=== PATIENT | male | born 1955 | race Caucasian/White ===

== ENCOUNTER 2019-05-17 13:32 | Outpatient (CLI) | payer BC, SELFPAY ==
--- NOTE | ~2019-05-17 | XR_ITS ---
EXAMINATION: XR chest 2V 05/17/2019 13:46 INDICATION: Cough PROCEDURE: 2 view chest COMPARISON: Comparison to multiple prior studies sequentially, with oldest reviewed study dated 08/15. FINDINGS: The lungs are clear. The cardiomediastinal silhouette is within normal limits. There are no pleural effusions. There is no pneumothorax suspected. IMPRESSION: 1: NO ACUTE CARDIOPULMONARY DISEASE. Reviewed, dictated and finalized at location A. ING WORKER
== END 2019-05-17 13:33 | disposition home or self-care (01) ==
PROVIDERS: PCP Family Medicine; Visit Provider Nurse Practitioner Family
DX: R05 Cough (principal)
CPT/HCPCS: 71046

== ENCOUNTER → 2019-07-07 08:07 | Outpatient (CLI) | payer BC, SELFPAY ==
--- NOTE | ~2019-07-07 | US_ITS ---
US abdomen complete DATE: 07/07/2019 09:00 INDICATION: Microscopic hematuria. Left flank pain. Past history of ruptured spleen secondary to trau ma. TECHNIQUE: Real-time and color flow imaging of the abdomen, Doppler analysis COMPARISON: None FINDINGS: Right hepatic 1.9 x 2.1 cm septated cyst. Left hepatic 1.8 x 1.4 cm cyst. Normal hepatic portal venous flow direction. No evidence of gallstones, gallbladder wall thickening or abnormal pericholecystic fluid collection. Negative sonographic Thorne's sign. The common bile duct measures 3.3 mm, normal. Right kidney measures 11 cm length, left kidney 10.5 cm length. No renal mass lesion or hydronephrosi s is evident. Probable 2.5 x 2.5 cm splenic tissue in the left upper quadrant. Normal caliber of the abdominal aorta. The inferior vena cava is unremarkable. IMPRESSION: Hepatic cysts Reviewed, dictated and finalized at Location A. Reviewed, dictated and finalized at location B. IMPRESSION: Hepatic cysts
== END ==
PROVIDERS: PCP Family Medicine; Visit Provider Family Medicine
DX: R31.29 Other microscopic hematuria (principal); K76.89 Other specified diseases of liver
CPT/HCPCS: 76700

== ENCOUNTER 2019-08-11 10:20 | Outpatient (CLI) | payer BC, SELFPAY ==
--- NOTE | ~2019-08-11 | CT_ITS ---
EXAMINATION: CT chest wo con DATE: 08/11/2019 10:54 INDICATION: Chronic cough TECHNIQUE: Computed tomography (CT) of the chest was performed without intravenous contrast. The dose -length product (DLP) was 282.97 mGy-cm. Automated exposure control and iterative reconstruction tech [employer] were employed. COMPARISON: None FINDINGS: Calcified pulmonary nodules are consistent with old granulomatous disease. The lungs are fr ee of acute opacities. There is no pleural effusion or pneumothorax. No pathologically enlarged thora cic lymph nodes are identified. There is an increase in number of nonpathologically enlarged lymph no katlyn in the bilateral axilla. The heart size is normal. There is calcified coronary artery atheroscler osis. Cysts of the liver measure up to 2.1 cm. The spleen is small which may reflect a splenule remna nt after prior splenectomy. There is mild thoracic spondylosis. IMPRESSION: 1. No CT correlate for the patient's symptoms. Reviewed, dictated and finalized at location A.
== END 2019-08-11 10:21 | disposition home or self-care (01) ==
LOC: ANHIMG 10:29
PROVIDERS: PCP Family Medicine; Visit Provider Nurse Practitioner Family
DX: R05 Cough (principal); R07.81 Pleurodynia
CPT/HCPCS: 71250

== ENCOUNTER 2019-08-30 10:28 | Outpatient (CLI) | payer BC, SELFPAY | END 2019-08-30 10:29 | disposition home or self-care (01) | PROVIDERS: PCP Family Medicine; Visit Provider Nurse Practitioner Family | DX: J30.9 Allergic rhinitis, unspecified (principal) | CPT/HCPCS: 36415; 82785; 86003 ==

== ENCOUNTER → 2020-01-27 08:51 | Outpatient (CLI) | payer BC, SELFPAY ==
--- NOTE | ~2020-01-27 | XR_ITS ---
XR cervical spine 4-5V DATE: 01/27/2020 09:07 INDICATION: Neck pain TECHNIQUE: Standing AP, open-mouth, lateral and swimmer views COMPARISON: 01/18/2016 MRI cervical spine 07/16/2015 cervical spine FINDINGS: There is normal alignment of the cervical spine. C1 and C2 are normally aligned and the odo ntoid process is intact. No fracture or dislocation or locked facet or prevertebral soft tissue swelling. There is severe degenerative disc disease at C5-6, C6-7 and C7-T1, with mild retrolisthesis at C5-6. There is prominent uncovertebral joint spurring at C5-6 and C6-7. IMPRESSION: Severe degenerative changes Reviewed, dictated and finalized at location A. IMPRESSION: Severe degenerative changes
== END ==
PROVIDERS: PCP Family Medicine; Visit Provider Family Medicine
DX: M47.812 Spondylosis without myelopathy or radiculopathy, cervical region (principal)
CPT/HCPCS: 72050

== ENCOUNTER 2020-05-02 10:13 | Outpatient (NON) | payer BC, SELFPAY ==
[2020-05-02 22:14] LABS: SARS-CoV-2 RNA PCR Positive
== END 2020-05-02 10:14 ==
PROVIDERS: PCP Internal Medicine; Visit Provider Nurse Practitioner
DX: U07.1 COVID-19 (principal)
CPT/HCPCS: C9803; U0003; U0005

== ENCOUNTER 2020-11-21 07:53 | Outpatient (CLI) | payer BC, SELFPAY ==
[2020-11-21 09:23] LABS: Vitamin D 25 Hydroxy 45.8 ng/mL
[2020-11-21 10:00] LABS: Alanine Aminotransferase 27 U/L (4-50); Albumin Level 4.2 g/dL (3.5-5.1); Alkaline Phosphatase 75 U/L (38-126); Anion Gap 8 mmol/L (8-16); Aspartate Amino Transferase 27 U/L (17-59); Bilirubin,Total 0.9 mg/dL (0.2-1.3); Blood Urea Nitrogen 14 mg/dL (9-20); Calcium 9.3 mg/dL (8.4-10.2); Carbon Dioxide 25 mmol/L (22-30); Chloride 106 mmol/L (98-107); Cholesterol 192 mg/dL (0-200); Estimated Glomerular Filt Rate > 60; Glucose 103 mg/dL (65-110); HDL Direct 58 mg/dL; Sodium 139 mmol/L (137-145); Triglycerides 135 mg/dL (<150)
[2020-11-21 10:11] LABS: LDL Cholesterol Direct 96 mg/dL
[2020-11-21 10:28] LABS: Prostate Specific Antigen 1.4 ng/mL (< OR = 4.0)
== END 2020-11-21 07:54 | disposition home or self-care (01) ==
LOC: ANHLAB 08:03
PROVIDERS: PCP Internal Medicine; Visit Provider Internal Medicine
DX: Z12.5 Encounter for screening for malignant neoplasm of prostate (principal); E78.5 Hyperlipidemia, unspecified; E55.9 Vitamin D deficiency, unspecified; Z51.81 Encounter for therapeutic drug level monitoring; Z79.899 Other long term (current) drug therapy
CPT/HCPCS: 36415; 80053; 80061; 82306; 84153; G0103

== ENCOUNTER 2020-12-18 07:43 | Outpatient (CLI) | payer BC, SELFPAY ==
--- NOTE | ~2020-12-18 | US_ITS ---
EXAMINATION: US carotid duplex BI EXAM DATE: 12/18/2020 08:26 INDICATION: Z86.79 - Personal history of other diseases of the circulatory system. TECHNIQUE: Grayscale, color and pulsed Doppler images of the cervical carotid arteries were obtained . The degree of vessel stenosis is placed in one of the following categories: normal, <50% stenosis, 50-69% stenosis, >=70% stenosis but less than near-occlusion, near-occlusion, or occlusion. Note that percent stenosis relative to normal distal artery lumen diameter is indirectly measured from velocit y measurements as described by Sebastián, et al. Radiology 2003; [id number]. Comparison is made to prior examination from 12/29/2016. FINDINGS: RIGHT SIDE: Right common carotid artery peak systolic velocity (PSV in cm/s): 89 Right bulb/internal carotid artery peak systolic velocity (PSV in cm/s): 58 Right internal carotid artery end diastolic velocity (EDV in cm/s): 22 Right ICA/CCA peak systolic ratio: 0.7 Right external carotid artery peak systolic velocity (PSV in cm/s): 75 Right vertebral artery antegrade flow: Occluded There is no focal plaque identified. LEFT SIDE: Left common carotid artery peak systolic velocity (PSV in cm/s): 118 Left bulb/internal carotid artery peak systolic velocity (PSV in cm/s): 58 Left internal carotid artery end diastolic velocity (EDV in cm/s): 23 Left ICA/CCA peak systolic ratio: 0.5 Left external carotid artery peak systolic velocity (PSV in cm/s): 65 Left vertebral artery antegrade flow: yes There is no focal plaque identified. IMPRESSION: 1. Normal right internal carotid artery. 2. Normal left internal carotid artery. Reviewed, dictated and finalized at location D.
== END 2020-12-18 07:44 | disposition home or self-care (01) ==
PROVIDERS: PCP Internal Medicine; Visit Provider Internal Medicine
DX: Z86.79 Personal history of other diseases of the circulatory system (principal)
CPT/HCPCS: 93880

== ENCOUNTER 2021-05-31 08:02 | Outpatient (CLI) | payer OTHER, SELFPAY ==
[2021-05-31 08:39] LABS: Alanine Aminotransferase 23 U/L (4-50); Albumin Level 4.1 g/dL (3.5-5.1); Alkaline Phosphatase 70 U/L (38-126); Anion Gap 2 mmol/L (8-16); Aspartate Amino Transferase 26 U/L (17-59); Bilirubin,Total 0.8 mg/dL (0.2-1.3); Blood Urea Nitrogen 15 mg/dL (9-20); Carbon Dioxide 28 mmol/L (22-30); Chloride 108 mmol/L (98-107); Cholesterol 250 mg/dL (0-200); Estimated Glomerular Filt Rate > 60; Glucose 114 mg/dL (65-110); HDL Direct 43 mg/dL; Potassium 4.1 mmol/L (3.4-5.0); Sodium 138 mmol/L (137-145); Triglycerides 141 mg/dL (<150)
[2021-05-31 08:50] LABS: LDL Cholesterol Direct 153 mg/dL
[2021-05-31 09:35] LABS: Vitamin D 25 Hydroxy 33.6 ng/mL
== END 2021-05-31 08:03 | disposition home or self-care (01) ==
PROVIDERS: PCP Internal Medicine; Visit Provider Internal Medicine
DX: R53.83 Other fatigue (principal); E78.5 Hyperlipidemia, unspecified; E55.9 Vitamin D deficiency, unspecified; Z79.899 Other long term (current) drug therapy
CPT/HCPCS: 36415; 80053; 80061; 82306

== ENCOUNTER 2021-06-04 09:26 | Outpatient (CLI) | payer OTHER, SELFPAY ==
--- NOTE | ~2021-06-04 | XR_ITS ---
EXAMINATION:XR_CERV2-3V_CR DATE: 06/04/2021 09:49 INDICATION: Neck pain TECHNIQUE: AP, lateral, and odontoid views of the cervical spine are provided. COMPARISON: 01/27/2020 FINDINGS: Alignment is normal. The odontoid is intact. No fracture is identified. There is unchanged severe loss of intervertebral disc space height at C5-6, C6-7, and C7-T1. Severe uncovertebral joint osteoarthritis is also noted at these levels. There is moderate to severe facet osteoarthritis throug hout the cervical spine. Degenerative osteophytes project from the anterior endplates of multiple darling tebral bodies. Prevertebral soft tissues are normal. IMPRESSION: 1. Severe cervical spondylosis without acute findings or significant interval change. Reviewed, dictated and finalized at location A. PER ON IMPRESSION: 1. Severe cervical spondylosis without acute findings or significant interval fiona rodríguez
[2021-06-04 11:34] LABS: Hemoglobin A1C 5.5 % (<5.7)
[2021-06-07 11:53] LABS: Testosterone Total 479 ng/dL (250-1100)
== END 2021-06-04 09:27 | disposition home or self-care (01) ==
LOC: ANHLAB 09:28
PROVIDERS: PCP Internal Medicine; Visit Provider Nurse Practitioner
DX: M54.2 Cervicalgia (principal); R53.83 Other fatigue; R73.9 Hyperglycemia, unspecified; M47.812 Spondylosis without myelopathy or radiculopathy, cervical region
CPT/HCPCS: 36415; 72040; 83036; 84403

== ENCOUNTER 2021-07-08 08:08 | Outpatient (CLI) | payer OTHER, SELFPAY | END 2021-07-08 08:09 | disposition home or self-care (01) | LOC: ANHAUDIO 08:09 | PROVIDERS: PCP Internal Medicine; Visit Provider Nurse Practitioner | DX: H93.19 Tinnitus, unspecified ear (principal); H90.3 Sensorineural hearing loss, bilateral | CPT/HCPCS: 92557; 92567 ==

== ENCOUNTER 2021-08-02 14:13 | Outpatient (CLI) | payer OTHER, SELFPAY ==
--- NOTE | ~2021-08-02 | XR_ITS ---
XR lumbar spine 2-3V DATE: 08/02/2021 14:34 INDICATION: Back pain, tailbone pain after a fall TECHNIQUE: AP, lateral, coned lateral lumbosacral views COMPARISON: None FINDINGS: There is prominent degenerative change at the apophyseal joints in the lower lumbar and lum bosacral area, with associated grade 1 anterolisthesis at L4-5. There is mild degenerative disc disease at L2-3 and L3-4. There is moderate degenerative disc disease at L4-5. There is severe degenerative disc disease at L5-S1. The lumbar pedicles are intact. The anterior cortical margin of L1 is not clearly demonstrated and there is patchy increased density overlying L1; fracture is not excluded. Consider further evaluation with CT or MR lumbar spine exami nation. No other fracture or bone destruction is detected. The sacroiliac joints are intact. IMPRESSION: Cannot exclude L1 subtle vertebral body fracture; consider CT or MR lumbar spine for more definitive evaluation. Grade 1 anterolisthesis at L4-5 due to degenerative change at the apophyseal joints Multilevel degenerative disc disease, most pronounced at L5-S1 Reviewed, dictated and finalized at location A. IMPRESSION: Cannot exclude L1 subtle vertebral body fracture; consider CT or MR lumbar spine for more definitive evaluation. Grade 1 anterolisthesis at L4-5 due to degenerative change at the apophyseal horacio ints Multilevel degenerative disc disease, most pronounced at L5-S1
--- NOTE | ~2021-08-02 | XR_ITS ---
EXAMINATION: XR hip RT min 2V DATE: 08/02/2021 14:35 INDICATION: Right hip pain. TECHNIQUE: 2 views of right hip were obtained. COMPARISON: None. FINDINGS: Bone alignment is normal. No fracture. Right hip joint space is normal. There is severe lum bar spondylosis. IMPRESSION: 1. Normal right hip. Reviewed, dictated and finalized at location A. IMPRESSION: 1. Normal right hip.
== END 2021-08-02 14:14 | disposition home or self-care (01) ==
PROVIDERS: PCP Internal Medicine; Visit Provider Internal Medicine
DX: M54.9 Dorsalgia, unspecified (principal); M25.551 Pain in right hip; M43.16 Spondylolisthesis, lumbar region; M51.37 Other intervertebral disc degeneration, lumbosacral region
CPT/HCPCS: 72100; 73502; 97014; 97110; 97161; G0283

== ENCOUNTER 2021-08-19 08:23 | Outpatient (CLI) | payer OTHER, SELFPAY ==
--- NOTE | ~2021-08-19 | CT_ITS ---
EXAMINATION: CT lumbar spine wo con DATE: 08/19/2021 08:45 INDICATION: Abnormal findings on diagnostic imaging. Low back pain. TECHNIQUE: Computed tomography (CT) of the lumbar spine was performed without intravenous contrast. A utomated exposure control and iterative reconstruction technique were employed. The dose-length produ ct was 759.13 mGy-cm. COMPARISON: Lumbar spine radiographs 08/02/2021 FINDINGS: There is 5 mm anterolisthesis of L4 on L5. There is a compression fracture of L4 with 2/5 l oss of height centrally. There is mildly decreased disc height at L4-L5 and severely decreased disc h eight at L5-S1. The following disc levels are specifically discussed: L1-L2: The disc does not extend beyond the endplate margin. There is mild bilateral facet joint osteo arthritis. There is no neural foraminal stenosis. There is no central canal stenosis. L2-L3: The disc is mildly bulging. There is mild bilateral facet joint osteoarthritis. There is mild bilateral neural foraminal stenosis. There is no central canal stenosis. L3-L4: The disc is bulging. There is moderate bilateral facet joint osteoarthritis. There is mild ga ateral neural foraminal stenosis. There is mild central canal stenosis. L4-L5: The disc is bulging. There is severe bilateral facet joint osteoarthritis. There is moderate b ilateral neural foraminal stenosis. There is moderate central canal stenosis. L5-S1: The disc is bulging. There is severe bilateral facet joint osteoarthritis. There is moderate b ilateral neural foraminal stenosis. There is mild central canal stenosis. IMPRESSION: 1. Subacute L4 compression fracture. 2. Severe lower lumbar spondylosis. Reviewed, dictated and finalized at location B.
== END 2021-08-19 08:24 | disposition home or self-care (01) ==
PROVIDERS: PCP Internal Medicine; Visit Provider Internal Medicine
DX: R93.7 Abnormal findings on diagnostic imaging of other parts of musculoskeletal system (principal); S32.040A Wedge compression fracture of fourth lumbar vertebra, initial encounter for closed fracture; M47.816 Spondylosis without myelopathy or radiculopathy, lumbar region
CPT/HCPCS: 72131

== ENCOUNTER 2021-09-11 09:00 | Outpatient (RCR) | payer OTHER, SELFPAY ==
--- NOTE | 2021-08-02 11:38 | PTOPEVAL ---
Thank you for referring Jimbo Howell to [facility].? The patient is scheduled to be seen for therapy?1 x/week for 4 weeks. Please review, sign, date and return this plan of care GIGI. I agree with and certify that the following plan of care is medically necessary. Referring Physician Date Attending Provider: Aidan Grigsby, Diagnosis neck pain Onset chronic Additional Evaluation Detail his recently injured his back from a fall 2 wks ago attempting to play basketball. He has not seen the MD for his back yet. Subjective Information He reports he feels like he Query Text:As Reported By Patient/ needs a massage to work on his Family neck muscle. He c/o N/T into UE when sleeping or when performing repeated hand task. 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 He reports limitations with turning his head with driving. Diagnostic Tests X-Rays For This Problem Yes: Severe cervical spondylosis Previous Treatments Previous Treatments For This Problem 1 visit 10 yrs ago Pain Assessment Posterior Neck Reported Pain Level 0 Pain Description Numbness,Radiating,Tightness, Tingling Pain Frequency Chronic Lowest Pain Intensity 0 Greatest Pain Intensity 6 Pain Aggravating Factors Exercise/Activity,Prolonged Position Cervical and Lumbar ROM Cervical ROM Cervical Flexion (0-60) 63 Degrees Cervical Extension (0-70) 55 Degrees Cervical Lateral Flexion Right (0-50) 18 Degrees Cervical Lateral Flexion Left (0-50) 18 Degrees Cervical Rotation Right (0-90) 32 Degrees Cervical Rotation Left (0-90) 40 Degrees Cervical ROM Comments pulling, tightness noted Upper Extremity Range of Motion General Upper Extremity Range of Motion Reason Not Measured WFL/Left,WFL/Right Cervical and Lumbar Muscle Testing Cervical Muscle Testing Cervical Flexion 5 Normal Cervical Extension 5 Normal Cervical Lateral Flexion Right 5 Normal Cervical Lateral Flexion Left 5 Normal Muscle Length Testing Muscle Length Testing Pectoralis Minor Muscle Length (R) Severe Tightness,(L) Severe Tightness Posture Sitting Position Shoulde
--- NOTE | 2021-08-26 11:58 | PTOPEVAL ---
Physical Therapy Progress Note Thank you for referring Jimbo Howell to [facility].?Jimbo has been seen for 5 therapy visits to address chronic neck pain. He is progressing slowly with improved pain and tissue restriction. See summary below for additional information. The patient is scheduled to be seen for therapy?1 x/week for 4 weeks. Please review, sign, date and return this plan of care GIGI. I agree with and certify that the following plan of care is medically necessary. Referring Physician Date Attending Provider: Aidan Grigsby DO Diagnosis neck pain Onset chronic Additional Evaluation Detail his recently injured his back from a fall 2 wks ago attempting to play basketball. He has not seen the MD for his back yet. Subjective Information He c/o pain with neck motion Query Text:As Reported By Patient/ or when working. He c/o Family numbness and tingling of UE when sleeping. He sleeps only 2-3 hrs before his symptoms start. He cont to have increased symptoms with repeated hand/UE task. He reports limitations with turning his head with driving. He is performing some exercises daily. 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 Pain Assessment post neck region Reported Pain Level 6 Pain Description Numbness,Radiating,Tightness, Tingling Pain Frequency Chronic Lowest Pain Intensity 0 Greatest Pain Intensity 6 Pain Aggravating Factors Exercise/Activity,Prolonged Cervical and Lumbar ROM Cervical ROM Cervical Flexion (0-60) 50 Degrees Cervical Extension (0-70) 50 Degrees Cervical Lateral Flexion Right (0-50) 18 Degrees Cervical Lateral Flexion Left (0-50) 18 Degrees Cervical Rotation Right (0-90) 60 Degrees Cervical Rotation Left (0-90) 54 Degrees Cervical ROM Comments pulling, tightness noted Posture Sitting Position Head/C-Spine Posture Forward Head Thoracic Spine Posture Increased Kyphosis Shoulder Posture (L) Rounded,(R) Rounded,(L) Forward,(R) Forward Scapula Posture (L) Protracted,(R) Protracted, (L) Winged,(R) Winged,(L) Tipped,(R) Tipped Palpation Assessment Palpation moderate to severe tenderness
--- NOTE | 2021-09-11 09:53 | PTOPEVAL ---
PHYSICAL THERAPY PROGRESS REPORT AND DISCHARGE SUMMARY. Thank you for referring Jimbo Howell to [facility].? The patient is to be discharged from therapy services at this time. Please review, sign, date and return this plan of care GIGI. I agree with and certify that the following plan of care is medically necessary. Referring Physician Date Attending Provider: Aidan Grigsby, Evaluation Information Diagnosis neck pain Onset chronic Subjective Information Pt states his neck pain has Query Text:As Reported By Patient/ improved and he can tolerate Family it as is for a while. He states he still has an ache and a knot in his R shoulder. He has no complaints about his L shoulder. He states his motion while driving has improved a little. He states overall he has improved, hes just not all the way better yet. He still has numbness and tingling in his R arm. 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 Pain Assessment Self Report Pain Assessment Posterior Neck Reported Pain Level 6 Pain Description Numbness,Radiating,Tightness,Tingling Greatest Pain Intensity 6 Cervical and Lumbar ROM Cervical ROM Cervical Flexion (0-60) 50 active Cervical Extension (0-70) 50 active Cervical Lateral Flexion Right (0-50) 16 active Cervical Lateral Flexion Left (0-50) 15 active Cervical Rotation Right (0-90) 57 active Cervical Rotation Left (0-90) 56 active Cervical ROM Comments Tightness noted on the R with all active cervical movements Posture Sitting Position Head/C-Spine Posture Forward Head Thoracic Spine Posture Increased Kyphosis Shoulder Posture (L) Rounded,(R) Rounded,(L) Forward,(R) Forward Scapula Posture (L) Protracted,(R) Protracted, (L) Winged,(R) Winged,(L) Tipped,(R) Tipped Palpation Assessment Palpation tightness noted in Daniel upper trap Safety Assessment Factors Affecting Safety No Concerns General Exercise Exercise Description - reviewed HEP and educted on Query Text:Record Sets, Reps, the importance of continuing Resistance, and Position upon discharge - reviewed hand placement for cervical stretches, educated olga
== END 2021-09-12 11:59 | disposition home or self-care (01) ==
LOC: ANHPT 09:00
PROVIDERS: PCP Internal Medicine; Visit Provider Internal Medicine
DX: M54.2 Cervicalgia (principal)
CPT/HCPCS: 97014; 97110; 97140; 97161; 97530; G0283

== ENCOUNTER 2021-12-09 08:14 | Outpatient (CLI) | payer OTHER, SELFPAY ==
[2021-12-09 10:00] LABS: Alanine Aminotransferase 24 U/L (6-50); Albumin Level 4.1 g/dL (3.5-5.1); Alkaline Phosphatase 65 U/L (38-126); Anion Gap 9 mmol/L (8-16); Aspartate Amino Transferase 32 U/L (17-59); Blood Urea Nitrogen 14 mg/dL (9-20); Carbon Dioxide 24 mmol/L (22-30); Chloride 103 mmol/L (98-107); Cholesterol 197 mg/dL (0-200); Estimated Glomerular Filt Rate > 60; Glucose 103 mg/dL (65-110); HDL Direct 45 mg/dL; Potassium 3.8 mmol/L (3.4-5.0); Sodium 136 mmol/L (137-145); Triglycerides 122 mg/dL (<150)
[2021-12-09 10:08] LABS: Hemoglobin A1C 5.5 % (<5.7)
[2021-12-09 10:11] LABS: LDL Cholesterol Direct 113 mg/dL
[2021-12-09 11:20] LABS: Prostate Specific Antigen 1.6 ng/mL (< OR = 4.0)
== END 2021-12-09 08:15 | disposition home or self-care (01) ==
PROVIDERS: PCP Internal Medicine; Visit Provider Nurse Practitioner
DX: R53.83 Other fatigue (principal); G47.00 Insomnia, unspecified; R73.9 Hyperglycemia, unspecified; Z12.5 Encounter for screening for malignant neoplasm of prostate; E78.5 Hyperlipidemia, unspecified
CPT/HCPCS: 36415; 80053; 80061; 83036; 84153; 84443; G0103

== ENCOUNTER 2021-12-10 11:05 | Outpatient (CLI) | payer OTHER, SELFPAY ==
--- NOTE | ~2021-12-10 | XR_ITS ---
EXAMINATION: XR chest 2V DATE: 12/10/2021 11:34 INDICATION: Other chest pain. TECHNIQUE: Frontal and lateral views of the chest were obtained. COMPARISON: Chest 2 views 05/17/2019 FINDINGS: Calcified left lung nodules are consistent with old granulomatous disease. No pleural effus ion or pneumothorax. The heart size is normal. IMPRESSION: 1. No acute cardiopulmonary disease. Reviewed, dictated and finalized at location A.
== END 2021-12-10 11:06 | disposition home or self-care (01) ==
PROVIDERS: PCP Internal Medicine; Visit Provider Internal Medicine
DX: R07.89 Other chest pain (principal)
CPT/HCPCS: 71046

== ENCOUNTER 2022-06-11 09:07 | Outpatient (CLI) | payer OTHER, SELFPAY ==
--- NOTE | ~2022-06-11 | XR_ITS ---
XR shoulder LT min 2V 06/11/2022 09:54 Indication: Restricted range of motion due to trauma. Procedure: 4 views left shoulder Comparison: No prior studies for comparison. Findings: There is heterotopic ossification surrounding the left clavicle and acromioclavicular joint . No acute fracture or traumatic malalignment. There is mild polyarticular osteoarthritis of the shou lder. No foreign bodies. 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 Reviewed, dictated and finalized at location B. 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
[2022-06-11 10:02] LABS: Alanine Aminotransferase 29 U/L (6-50); Albumin Level 4.3 g/dL (3.5-5.1); Alkaline Phosphatase 68 U/L (38-126); Anion Gap 7 mmol/L (8-16); Aspartate Amino Transferase 29 U/L (17-59); Bilirubin,Total 1.3 mg/dL (0.2-1.3); Blood Urea Nitrogen 13 mg/dL (9-20); Calcium 8.9 mg/dL (8.4-10.2); Carbon Dioxide 27 mmol/L (22-30); Chloride 106 mmol/L (98-107); Cholesterol 219 mg/dL (0-200); Estimated Glomerular Filt Rate > 60; Glucose 107 mg/dL (65-110); HDL Direct 43 mg/dL; Potassium 4.2 mmol/L (3.4-5.0); Sodium 140 mmol/L (137-145); Triglycerides 119 mg/dL (<150)
[2022-06-11 10:12] LABS: Hemoglobin A1C 5.7 % (<5.7)
[2022-06-11 10:13] LABS: LDL Cholesterol Direct 126 mg/dL
[2022-06-11 10:30] LABS: Prostate Specific Antigen 1.4 ng/mL (< OR = 4.0); Thyroid Stimulating Hormone 0.921 uIU/mL (0.465-4.680)
[2022-06-24 09:18] LABS: Testosterone Free 42.2 pg/mL (46.0-224.0)
== END 2022-06-11 09:08 | disposition home or self-care (01) ==
PROVIDERS: PCP Internal Medicine; Visit Provider Internal Medicine
DX: M19.012 Primary osteoarthritis, left shoulder (principal); R53.83 Other fatigue; E78.5 Hyperlipidemia, unspecified; N40.0 Benign prostatic hyperplasia without lower urinary tract symptoms; R73.9 Hyperglycemia, unspecified; Z12.5 Encounter for screening for malignant neoplasm of prostate
CPT/HCPCS: 36415; 73030; 80053; 80061; 83036; 84153; 84402; 84443; G0103

== ENCOUNTER 2022-10-14 10:24 | Outpatient (CLI) | payer OTHER, SELFPAY ==
--- NOTE | ~2022-10-14 | XR_ITS ---
Right wrist Technique: PA and lateral views were obtained. Clinical History: Pain Findings: No acute fracture or dislocation is seen. There is advanced degenerative change of the STT articulations. Remaining joint spaces appear intact. Soft tissues are unremarkable. Impression: Advanced osteoarthritis of the STT articulations. Reviewed, dictated and finalized at location . Impression: Advanced osteoarthritis of the STT articulations.
--- NOTE | ~2022-10-14 | XR_ITS ---
Right Hand Technique: PA and lateral views were obtained. Clinical History: Pain Findings: No acute fracture or dislocation is seen. There is advanced degenerative change at the STT articulations in the wrist. There are minimal scattered degenerative changes of the interphalangeal j oints in the fingers. Soft tissues are unremarkable. Impression: Advanced degenerative change of the STT articulations and the wrist. Minimal scattered degenerative changes of the interphalangeal joints in the fingers. Reviewed, dictated and finalized at location M. Impression: Advanced degenerative change of the STT articulations and the wrist. Minimal scattered degenerative changes of the interphalangeal joints in the fin gers.
== END 2022-10-14 10:25 | disposition home or self-care (01) ==
PROVIDERS: PCP Family Medicine; Visit Provider Family Medicine
DX: R53.83 Other fatigue (principal); G56.20 Lesion of ulnar nerve, unspecified upper limb; G47.33 Obstructive sleep apnea (adult) (pediatric); G47.00 Insomnia, unspecified; F41.9 Anxiety disorder, unspecified; M25.539 Pain in unspecified wrist; E55.9 Vitamin D deficiency, unspecified; E78.5 Hyperlipidemia, unspecified; R73.9 Hyperglycemia, unspecified; M19.031 Primary osteoarthritis, right wrist
CPT/HCPCS: 73100; 73120

== ENCOUNTER → 2022-11-19 08:06 | Outpatient (CLI) | payer OTHER, SELFPAY ==
--- NOTE | ~2022-11-19 | XR_ITS ---
Right elbow Technique: AP and lateral views were obtained. Clinical History: Pain Findings: No acute fracture or dislocation is seen. Osseous alignment is anatomic. Joint spaces are p reserved. There is no displacement of the fat pads, and no evidence of joint effusion. There are enth esopathic changes or chronic heterotopic ossification at the medial and lateral epicondyles. There is additional enthesopathic change at the triceps tendon insertion. Impression: Enthesopathic changes and/or heterotopic ossification at the medial and lateral epicondyles. Addition al enthesopathic change at the triceps tendon insertion. Reviewed, dictated and finalized at location M. Impression: Enthesopathic changes and/or heterotopic ossification at the medial and lateral epicondyles. Additional enthesopathic change at the triceps tendon insertion.
== END ==
PROVIDERS: PCP Family Medicine; Visit Provider Orthopaedic Surgery
DX: M25.521 Pain in right elbow (principal); M77.8 Other enthesopathies, not elsewhere classified; M77.01 Medial epicondylitis, right elbow; M77.11 Lateral epicondylitis, right elbow
CPT/HCPCS: 73070

== ENCOUNTER 2022-12-30 10:04 | Outpatient (CLI) | payer OTHER, SELFPAY ==
--- NOTE | 2022-12-30 11:30 | NEURO_ITS ---
PATIENT NUMBER: [id number] IMPRESSION: # Complains of numbness of hands. # Bilateral Carpal Tunnel Syndrome right greater than left. # Bilateral ulnar neuropathy around the elbow. # Abnormal need exam. [facility]
== END 2022-12-30 10:05 | disposition home or self-care (01) ==
LOC: ANHNEURO 10:05
PROVIDERS: PCP Family Medicine; Visit Provider Orthopaedic Surgery
DX: G56.03 Carpal tunnel syndrome, bilateral upper limbs (principal); G56.23 Lesion of ulnar nerve, bilateral upper limbs
CPT/HCPCS: 95886; 95911

== ENCOUNTER 2023-01-09 09:21 | Outpatient (CLI) | payer OTHER, SELFPAY ==
--- NOTE | ~2023-01-09 | CT_ITS ---
EXAMINATION: CT elbow RT wo con DATE: 01/09/2023 10:08 INDICATION: Ulnar nerve lesion TECHNIQUE: High resolution computed tomography (CT) of the right elbow was performed without intraven ous contrast. Additional sagittal and coronal reconstructions were performed. Automated exposure cont rol and iterative reconstruction technique were employed. The dose-length product was 462.51 mGy-cm. COMPARISON: Radiograph dated 11/19/2022 FINDINGS: Bone alignment is normal. No fracture. Mild osteoarthritis involving all 3 compartments of the right elbow joint. No elbow joint effusion. Small loose osteochondral bodies anteriorly near the confluence of all 3 compartments of the elbow. Small enthesophyte and couple small enthesophyte ossicles at the distal triceps tendon. Additional small enthesopathic ossicles at the medial and lateral epicondylar origins of the common flexor and extensor wads respectively. 9 x 7 x 7 mm ossicle posterior to the m edial epicondyle, unclear whether this represents a degenerative loose body or more likely heterotopi c ossicle along the ulnar collateral ligament complex. This underlies the ulnar nerve at the cubital tunnel. There is mild fusiform thickening and subtle central decreased density at the ulnar nerve pro ximal to the tibial tunnel which can be seen with ulnar neuropathy in the setting of cubital tunnel s yndrome. IMPRESSION: 1. Findings suggestive of cubital tunnel syndrome with ulnar neuropathy, likely related to impingemen t resulting from a 9 x 7 x 7 mm ossicle along the floor of the cubital tunnel. Reviewed, dictated and finalized at location A. IMPRESSION: 1. Findings suggestive of cubital tunnel syndrome with ulnar neuropathy, likely related to impingement resulting from a 9 x 7 x 7 mm ossicle along the floor o f the cubital tunnel.
== END 2023-01-09 09:22 | disposition home or self-care (01) ==
PROVIDERS: PCP Family Medicine; Visit Provider Orthopaedic Surgery
DX: G56.20 Lesion of ulnar nerve, unspecified upper limb (principal)
CPT/HCPCS: 73200

== ENCOUNTER 2023-01-14 07:37 | Outpatient (CLI) | payer OTHER, SELFPAY ==
[2023-01-14 08:27] LABS: Hematocrit 45.1 % (42.0-52.0); Hemoglobin 15.1 g/dL (14.0-18.0); Mean Corpuscular HGB Conc 33.5 g/dl (32-36); Mean Corpuscular Hemoglobin 31.5 pg (26-34); Mean Platelet Volume 8.8 fl (7.4-10.4); Platelet Count Result 369 k/mm3 (150-375); Red Cell Distribution Width 15.1 % (11.5-14.5); White Blood Count 9.3 K/mm3 (4.5-10.0)
[2023-01-14 08:42] LABS: Alanine Aminotransferase 27 U/L (6-50); Albumin Level 4.2 g/dL (3.5-5.1); Alkaline Phosphatase 55 U/L (38-126); Anion Gap 7 mmol/L (8-16); Aspartate Amino Transferase 31 U/L (17-59); Bilirubin,Total 1.2 mg/dL (0.2-1.3); Blood Urea Nitrogen 13 mg/dL (9-20); Calcium 8.7 mg/dL (8.4-10.2); Carbon Dioxide 23 mmol/L (22-30); Chloride 108 mmol/L (98-107); Estimated Glomerular Filt Rate > 60; Glucose 106 mg/dL (65-110); Potassium 3.7 mmol/L (3.4-5.0); Sodium 138 mmol/L (137-145)
[2023-01-21 09:30] LABS: Testosterone Free 43.3 pg/mL (35.0-155.0); Testosterone Total 442 ng/dL (250-1100)
== END 2023-01-14 07:38 | disposition home or self-care (01) ==
PROVIDERS: PCP Family Medicine; Visit Provider Family Medicine
DX: R53.83 Other fatigue (principal); G56.20 Lesion of ulnar nerve, unspecified upper limb; G47.33 Obstructive sleep apnea (adult) (pediatric); G47.00 Insomnia, unspecified; F41.9 Anxiety disorder, unspecified; M25.539 Pain in unspecified wrist; E55.9 Vitamin D deficiency, unspecified; E78.5 Hyperlipidemia, unspecified; R73.9 Hyperglycemia, unspecified
CPT/HCPCS: 36415; 80053; 84402; 84403; 84443; 85027

== ENCOUNTER 2023-02-04 09:51 | Outpatient (CLI) | payer OTHER, SELFPAY ==
--- NOTE | 2023-02-04 09:57 | ECG_ITS ---
Measurements Intervals [place] Rate: 73 P: 57 SD: 158 QRS: 22 QRSD: 83 T: 57 QT: 388 QTc: 428 Interpretive Statements SINUS RHYTHM WITH OCCASIONAL VENTRICULAR PREMATURE COMPLEXES BASELINE ARTIFACT NONSPECIFIC T-WAVE ABNORMALITY BORDERLINE ECG NO PREVIOUS ECG AVAILABLE FOR COMPARISON Electronically Signed On 02-04-2023 18:28:31 CDT by Mike Okeefe M.D.
== END 2023-02-04 09:52 | disposition home or self-care (01) ==
LOC: ANHSURGERY 09:54
PROVIDERS: PCP Family Medicine; Visit Provider Orthopaedic Surgery
DX: Z01.818 Encounter for other preprocedural examination (principal); E78.5 Hyperlipidemia, unspecified; R93.1 Abnormal findings on diagnostic imaging of heart and coronary circulation
CPT/HCPCS: 93005

== ENCOUNTER 2023-02-09 00:12 | Day surgery (SDC) | payer OTHER, SELFPAY ==
[2023-02-03 09:38] VITALS: BMI 29.5
--- NOTE | 2023-02-03 09:46 | PC.NURSE ---
Report to the Outpatient Waiting Room, entrance under the green pavilion located off [facility], at time _0730_ on date _[id number]_. Planned Procedure Time: _0930_. Time changes happen often and if your time is changed the preop area will call you the afternoon before. - You and your visitor will be asked to self-screen and do not enter if you have any COVID symptoms. - A mask is optional within the hospital at this time. Patients may have clear liquids (water, carbonated beverages, clear teas, apple juice) until 3 hours prior to surgery with a maximum of 20 ounces. - No food from midnight until time of surgery Take the following medications with a SIP of water the morning of surgery: ____None DO NOT STOP ANY OF YOUR OTHER PRESCRIPTION MEDICATIONS PRIOR TO SURGERY ?EXCEPT THE FOLLOWING Medications to discontinue per physician None Please no make-up, nail kazakh, hairspray, perfume, deodorant, or body powder the day of surgery. No jewelry (including any body piercings) or valuables the day of surgery, leave them at home. Please take a shower or bath the night before, or the morning of, surgery with an antibacterial soap. Wear comfortable, loose fitting clothing. - Jewelry must be removed prior to entering the operating room. Rings and piercings that are not removed may be cut off. - The hospital will not accept responsibility for valuables. - Please leave all valuables, including medications, at home the day of surgery. If you are going home after surgery, a licensed motor pool driver must drive you home. - NO public transportation without another adult if you receive anesthesia. - We recommend that an adult stay with you for 24 hours following discharge. - We also recommend that you do not drive, make important decision, drink alcoholic beverages, or take any drugs that were not prescribed by your health care provider for at least 24 hours after your discharge time. Follow any additional instructions given to you from your surgeon. If you or anyone in your household have experienced Covid symptoms in the past week, please notify your surgeon or the nurse liaison at the phone number below for possible testing. Telephone instructions given to __Patient___and asked if any additional questions and then verbalized understanding. Patient advised to call surgeon office or pre surgery nurse liaison [phone] if any additional questions.
[2023-02-09] VITALS (8 sets, daily range): BP systolic 114–132; BP diastolic 72–83; PULSE 59–79; RESP 12–20; TEMP 36.1–37.1; O2SAT 92–98
[2023-02-09] MEDS: KETOROLAC 15 MG/ML VIAL (*BKC) IV PUSH (08:00)
[2023-02-09] MEDS: LACTATED RINGERS 1,000 ML 30 ML IV CONT ×2 (08:00→10:50)
[2023-02-09] MEDS: ACETAMINOPHEN 500 MG TABLET 1000 MG PO (08:15)
--- NOTE | 2023-02-09 08:21 | WPDANESEPPF ---
Anes - Initial Pre Proc Eval Procedure: Operation Date: 02/09/23 09:30 Proposed Procedures p Right Carpal and Cubital Tunnel Release, Possible Ulnar Nerve Transposition - Rashad Drew MD Date/Time: 02/09/23 08:21 Surgeon: Rashad Drew MD Pre Op Diagnosis: right carpal and cubital tunnel syndrome Patient Data Age: 68 Gender: M Height: 1.78 m Weight: 93.2 kg Allergies Allergy/AdvReac Type Severity Reaction Status Date / Time grass pollen Allergy Mild WATER EYES Verified 02/09/23 09:37 Home Medications Medication Instructions Recorded Confirmed Type atorvastatin 40 mg tablet See Rx Instructions .Route 06/02/22 02/09/23 Rx .COMPLEX #90 tabs tamsulosin 0.4 mg capsule (Flomax) 0.4 mg PO DAILY #30 caps 07/03/22 02/09/23 Rx zolpidem 12.5 mg tablet,extended 12.5 mg PO ONCE #30 tabs 01/12/23 02/09/23 Rx release,multiphase hydrocodone 7.5 mg-acetaminophen 1 tablet PO Q4-6H PRN pain #30 tabs 02/09/23 Rx 325 mg tablet Patient hx anesthesia problems: none Family hx anesthesia problems: none Results Review: All pre-operative results and documents have been reviewed as part of the pre-operative evaluation. FORMERLY [facility], [facility] Past Medical History Medical History (Updated 02/09/23 @ 11:01 by Rashad Drew MD) Above knee amputation of left lower extremity Anxiety Body mass index [BMI] 27.0-27.9, adult (01/24/19) Bronchitis History of COVID-19 Hyperlipidemia Insomnia ROSALIE (obstructive sleep apnea) Ringing in ears Vitamin D deficiency Vitiligo Surgical History Surgical History (Updated 02/09/23 @ 11:01 by Rashad Drew MD) Cubital tunnel syndrome on right Cubital tunnel decompression February 09, 2023 History of above-knee amputation left Hx of splenectomy Right carpal tunnel syndrome Right carpal tunnel release February 10, 2020 Family History Family History Father Lymphoma Social History Social History Smoking status: Current some day smoker Tobacco type: cigars Alcohol intake: current Drinks per week: 4 Alcohol use details: SOCIAL, beers Substance use: current Substance use type: marijuana Other substance usage details: rarely Lack of Transportation: No Lack of Food: Never True Current Housing: Decline to Answer Concerned About Future Housing: Decline to Answer Difficulty Paying Gas/Electric Bills: Decline to Answer Difficulty Paying for Meds: Decline to Answer Currently Unemployed: Decline to Answer Education: Decline to Answer Difficulty w/ Childcare or Family Care: Decline to Answer Living arrangements: with family 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 Gender identity (if verbalized by the patient): Male Sexual Orientation (if Verbalized by the Patient): Straight or Heterosexual Spiritual care concerns: No Anes - Eval Final PreProcedure Day of Procedure 02/09/23 08:21 Patient weight: overweight Heart: regular rate and rhythm Lungs: clear to auscultation Airway: Mallampati scale class II Neurological: alert and oriented Last oral intake: >/= 8 hours ASA classification: III Emergent: no Anesthetic plan: proceed Anesthesia type and monitoring: general LMA and standard monitoring Results Review: All pre-operative results and documents have been reviewed as part of the pre-operative evaluation. Informed Consent: The patient's anesthetic plan and its attendant risks and benefits were discussed with the patient/family/POA. Questions were solicited and answers provided to the satisfaction of the patient/family/POA.
--- NOTE | 2023-02-09 08:55 | WPDHPUPDATE1 ---
History and Physical Update Update Date/Time: 02/09/23 08:55 History and Physical has been reviewed, including an updated exam of the patient. There are NO changes in the patient's condition. Risks, benefits, and alternatives have been discussed and questions answered. Patient agrees to proceed with procedure.
[2023-02-09] MEDS: ceFAZolin 2 GM/D5W 50 ML 2 GM/50 ML BAG IVPB (09:28)
[2023-02-09] MEDS: LIDO 1%/EPINEPHRINE 1:100,000 50 ML VIAL 10 ML INFILTRATE (10:01)
--- NOTE | 2023-02-09 11:01 | P.OP_ITS ---
Procedure Note - Detailed Date of Procedure 02/09/23 Pre-op Diagnosis right carpal and cubital tunnel syndrome Post-op Diagnosis Same Procedure Performed Right carpal and cubital tunnel releases Surgeon Rashad Drew MD Change Management Administrator [place] Anesthesia General Description of Procedure The patient was identified and proper sites identified. He was taken to the operating room and transferred to the OR table placed him supine take care to pad his torso extremities. After general anesthetic induction and intubation a nonsterile tourniquet was placed high on the right arm which was then prepped and draped in the usual sterile fashion. The extremity was exsanguinated and the tourniquet was inflated to 250 millimeters Hg remaining up for approximately 47. A curvilinear incision was made over the ulnar nerve at the cubital tunnel. Subcutaneous tissue was sharply dissected down to the cubital tunnel retinaculum. This was divided in line with direction of the nerve. The fascia of the FCU muscle belly was divided. It was encroaching upon the ulnar nerve significantly. There was also of the vasculature and some fatty tissue surrounding it. Proximally the nerve was released as well. The elbow was taken through range of motion and the nerve noted to stay in the groove so no t ransposition was performed. The area the ossicle was identified but it was fairly prominent in the distal portion of the cubital tunnel and with the release of the overlying fascia this was no longer an issue so rather than create a bunch of right tissue for potential scarring the decision was made to leave it. Elbow wound was irrigated with sterile saline. Subcutaneous tissue was reapproximated with 4-0 Monocryl and skin closed with 4-0 Prolene and Steri- Strips. Attention was then turned to the wrist. A longitudinal incision was made utilizing palmar creases over the transverse carpal ligament. Subcutaneous tissue was sharply dissected down to the level of the ligament which was identified and transected in line with the incision relief contents of the carpal canal. Hemostasis was carried out. The subcutaneous tissue on either side of the ligament was injected with several cc of 1% lidocaine and epinephrine solution. Wound was irrigated and then skin edges reapproximated with 4-0 nylon suture. Sterile dressings were applied. Patient tolerated the procedure well. Tourniquet was released. He was awakened, extubated and taken recovery area in stable condition. There were no known intraoperative complications. Estimated blood loss is negligible. He received perioperative antibiotic. Estimated Blood Loss -1.0 Tourniquet Time 47 Drains No Packing No Pathology None sent Complications No immediate complications Condition Stable Disposition PACU [facility] Billing Surgery - Charge Forward: Surgery Billing ([id number]; [id number])
[2023-02-09] MEDS: fentaNYL CITRATE INJ (*CRX) 100 MCG/2 ML VIAL 25 MCG IV PUSH ×8 (11:07→11:36)
[2023-02-09] MEDS: oxyCODONE HCL (*CRX) 5 MG TAB IR PO (12:13)
== END 2023-02-09 12:48 | disposition home or self-care (01) ==
PROVIDERS: PCP Family Medicine; Visit Provider Orthopaedic Surgery
PROC: (CPT 64721; principal; 2023-02-09 09:30)
DX: G56.01 Carpal tunnel syndrome, right upper limb (principal); G56.21 Lesion of ulnar nerve, right upper limb; F41.9 Anxiety disorder, unspecified; E78.5 Hyperlipidemia, unspecified; G47.00 Insomnia, unspecified; G47.33 Obstructive sleep apnea (adult) (pediatric); E55.9 Vitamin D deficiency, unspecified; F17.290 Nicotine dependence, other tobacco product, uncomplicated; F12.90 Cannabis use, unspecified, uncomplicated
CPT/HCPCS: 64721; 64718; 93005; A4565; A9270; J0690; J1100; J1885; J2250; J2405; J2704; J3010; J7120

== ENCOUNTER 2024-01-26 09:33 | Outpatient (CLI) | payer OTHER, SELFPAY ==
[2024-01-26 09:51] LABS: Hematocrit 46.6 % (42.0-52.0); Hemoglobin 15.7 g/dL (14.0-18.0); Mean Corpuscular HGB Conc 33.7 g/dl (32-36); Mean Corpuscular Volume 95.1 fl (80-100); Mean Platelet Volume 8.4 fl (7.4-10.4); Platelet Count Result 382 k/mm3 (150-375); Red Cell Distribution Width 15.6 % (11.5-14.5); White Blood Count 9.5 K/mm3 (4.5-10.0)
[2024-01-26 10:03] LABS: Alanine Aminotransferase 21 U/L (6-50); Albumin Level 4.4 g/dL (3.5-5.1); Alkaline Phosphatase 62 U/L (38-126); Anion Gap 8 mmol/L (4-12); Aspartate Amino Transferase 25 U/L (17-59); Bilirubin,Total 1.2 mg/dL (0.2-1.3); Blood Urea Nitrogen 12 mg/dL (9-20); Calcium 8.9 mg/dL (8.4-10.2); Carbon Dioxide 26 mmol/L (22-30); Chloride 106 mmol/L (98-107); Cholesterol 188 mg/dL (0-200); Estimated Glomerular Filt Rate > 60; Glucose 112 mg/dL (65-110); HDL Direct 49 mg/dL; Potassium 3.7 mmol/L (3.4-5.0); Sodium 140 mmol/L (137-145); Triglycerides 148 mg/dL (<150)
[2024-01-26 10:11] LABS: Hemoglobin A1C 5.6 % (<5.7)
[2024-01-26 10:14] LABS: LDL Cholesterol Direct 96 mg/dL
[2024-01-26 10:33] LABS: Prostate Specific Antigen 1.7 ng/mL (< OR = 4.0)
== END 2024-01-26 09:34 | disposition home or self-care (01) ==
PROVIDERS: PCP Family Medicine; Visit Provider Family Medicine
DX: E55.9 Vitamin D deficiency, unspecified (principal); E78.5 Hyperlipidemia, unspecified; G47.33 Obstructive sleep apnea (adult) (pediatric); F41.9 Anxiety disorder, unspecified; H93.19 Tinnitus, unspecified ear; R53.83 Other fatigue; R10.9 Unspecified abdominal pain; Z12.5 Encounter for screening for malignant neoplasm of prostate; Z79.899 Other long term (current) drug therapy
CPT/HCPCS: 36415; 80053; 80061; 83036; 84153; 85027; G0103

== ENCOUNTER 2024-04-25 17:21 | Emergency (ER) | payer OTHER, SELFPAY ==
--- NOTE | ~2024-04-25 | CT_ITS ---
History: Fall PROCEDURE: CT head without contrast. COMPARISON: 04/10/2018 TECHNIQUE: Axial imaging of the head performed from the skull base to the vertex without IV contrast. Sagittal a nd coronal reformations obtained. DLP: 605 mGy-cm FINDINGS: The ventricles are normal in size, shape and position. There is no mass, mass effect or midline shift. There is no abnormal extra-axial fluid collection or intracranial hemorrhage. Mucoperiosteal thickening within the bilateral frontal and ethmoid sinuses. Complete opacification of the left maxillary sinus. The right maxillary sinus is only minimally visualized. The mastoid air cells are well aerated. No acute displaced fractures within the overlying cranium on the submitted images. Impression: No acute intracranial hemorrhage or suspicious mass effect. Significant inflammatory sinus disease, as detailed above. Reviewed, dictated and finalized at location A. S CONTRACT ADMINISTRATOR Impression: No acute intracranial hemorrhage or suspicious mass effect. Significant inflammatory sinus disease, as detailed above.
--- NOTE | ~2024-04-25 | CT_ITS ---
History: Fall PROCEDURE: CT cervical spine without intravenous contrast. COMPARISON: Reference is made to multiple plain film evaluations of the cervical spine as well as an MRI of the cervical spine which was dated 01/18/2016 TECHNIQUE: Multiple contiguous axial images of the cervical spine were performed without the administration of i ntravenous contrast. DLP: 475 mGy-cm FINDINGS: Straightening and slight reversal of the normal curvature of the cervical spine is identified, likely muscular in origin. No acute fractures are present. Significant degenerative disease is noted with osteophyte formation, disc space narrowing, endplate c hanges and facet arthropathy. The bilateral lung apices are unremarkable. No soft tissue abnormality is present. The airway is patent. Impression: Straightening and slight reversal of the normal curvature of the cervical spine, likely muscular in o rigin. Severe degenerative disease, without acute fracture. Reviewed, dictated and finalized at location A. R RELATIONS SPECIALIST Impression: Straightening and slight reversal of the normal curvature of the cervical spine , likely muscular in origin. Severe degenerative disease, without acute fracture.
--- NOTE | ~2024-04-25 | XR_ITS ---
HISTORY: left sided rib and shoulder pain post fall COMPARISON: 06/11/2022 TECHNIQUE: PA and lateral views of the chest along with 3 views of the left ribs FINDINGS: No acute displaced fracture is appreciated. The adjacent left lung is unremarkable. Bone mineralization is age advanced. The cardiomediastinal silhouette is unremarkable. The lungs are primarily clear. Severe degenerative disease within the left acromioclavicular joint and glenohumeral joint spaces wit h extensive osteophyte formation and joint space narrowing. This appearance is similar to previous ex amination of the left shoulder performed 06/11/2022. IMPRESSION: No acute displaced left rib fracture. Severe degenerative disease within the left shoulder. The cardiomediastinal silhouette is unremarkable. The lungs are clear. If clinical suspicion persists, cross-sectional imaging (noncontrast enhanced CT examination of the c hest) is suggested for further evaluation. Reviewed, dictated and finalized at location A. COVERER IMPRESSION: No acute displaced left rib fracture. Severe degenerative disease within the left shoulder. The cardiomediastinal silhouette is unremarkable. The lungs are clear. If clinical suspicion persists, cross-sectional imaging (noncontrast enhanced C T examination of the chest) is suggested for further evaluation.
--- NOTE | 2024-04-25 17:36 | ED_ITS ---
HPI - Fall General Chief Complaint: Fall <SHERRY Lerner Last Filed: 04/26/24 14:49> Stated Complaint: FALL ON ICE, L RIB PAIN <SHERRY Lerner Last Filed: 04/26/24 14:49> Time Seen by Provider: 04/25/24 17:36 <SHERRY Lerner Last Filed: 04/26/24 14:49> Focused HPI: This is a 69 year old male that presents to the ER for left sided rib pain. Reports he slipped and fell. Reports landing on his left side. He did hit his head. He did not lose consciousness. He does not take blood thinners. Reports left sided rib pain worse with coughing and breathing. Concerned he broke some ribs. GENERAL: Well-appearing, well-nourished, and in no acute distress. HEAD: Normocephalic, atraumatic. CHEST: Clear to auscultation. ?No respiratory distress. HEART: Regular rate and rhythm.? NEURO: ?Alert and oriented x3. Patient screened in triage and initial orders placed.? ?Additional care and disposition to be based upon?diagnostic testing and treatment. <Baylee Hillman PA-C - Last Filed: 04/26/24 14:49> Source: patient <SHERRY Chopra Last Filed: 04/25/24 21:06> Mode of arrival: ambulatory <SHERRY Chopra Last Filed: 04/25/24 21:06> Limitations: no limitations <SHERRY Chopra Last Filed: 04/25/24 21:06> History of Present Illness HPI Narrative: Agree with triage note <SHERRY Chopra Last Filed: 04/25/24 21:06> Related Data Allergies/Adverse Reactions: Allergies Allergy/AdvReac Type Severity Reaction Status Date / Time grass pollen Allergy Mild WATER EYES Verified 04/25/24 17:22 <SHERRY Lerner Last Filed: 04/26/24 14:49> Review of Systems Review of Systems: All systems as dictated in HPI <SHERRY Chopra Last Filed: 04/25/24 21:06> PMFSH Past Medical History Medical History: Medical History Vitiligo Hyperlipidemia Vitamin D deficiency History of COVID-19 Ringing in ears Anxiety Above knee amputation of left lower extremity Body mass index [BMI] 27.0-27.9, adult (01/24/19) Bronchitis Insomnia ROSALIE (obstructive sleep apnea) <Baylee Hillman PA-C - Last Filed: 04/26/24 14:49> Surgical History Surgical History: Surgical History Cubital tunnel syndrome on right Cubital tunnel decompression February 09, 2023 Right carpal tunnel syndrome Right carpal tunnel release February 10, 2020 History of above-knee amputation left Hx of splenectomy <Baylee Hillman PA-C - Last Filed: 04/26/24 14:49> Family History Family History: Family History Father Lymphoma <SHERRY Lerner Last Filed: 04/26/24 14:49> Social History Social History: Social History Smoking status: Light tobacco smoker (occasional cigar) Tobacco type: cigars Alcohol intake: current Drinks per week: 4 Alcohol use details: SOCIAL, beers Substance use: current Substance use type: marijuana Other substance usage details: rarely Lack of Transportation: No Lack of Food: Never True Current Housing: Decline to Answer Concerned About Future Housing: Decline to Answer Difficulty Paying Gas/Electric Bills: Decline to Answer Difficulty Paying for Meds: Decline to Answer Currently Unemployed: Decline to Answer Education: Decline to Answer Difficulty w/ Childcare or Family Care: Decline to Answer Living arrangements: with family 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 HEAD: Normocephalic, atraumatic. EYES: PERRLA and EOMI. ENT: Nares clear, no rhinorrhea or epistaxis. Mucous membranes moist. Oropharynx without tonsillar hypertrophy exudate or other lesions. NECK: Supple. No adenopathy or masses. CHEST: No respiratory distress. Clear to auscultation. No wheezes rales or rhonchi. Mild tenderness to the left lateral ribs. No crepitus. No bruising. HEART: Regular rate and rhythm. No murmur heard. Normal peripheral pulses. ABDOMEN: Soft, nontender, nondistended, normal active bowel sounds. MSK: Normal range of motion. No edema. No midline spinal tenderness. Ambulatory without assistance. SKIN: Warm, dry, no rash. NEURO: Alert and oriented x4. No focal deficits. PSYCH: Normal mood and affect. <Willy Armstrong PA-C - Last Filed: 04/25/24 21:06> Course Vital Signs Vital signs: Vital Signs Temperature 98 F 04/25/24 17:49 Pulse Rate 78 04/25/24 17:49 Respiratory Rate 17 04/25/24 17:49 Blood Pressure 172/100 H 04/25/24 17:49 Pulse Oximetry 97 04/25/24 17:49 Oxygen Delivery Room Air 04/25/24 17:49 Temperature 97.8 F 04/25/24 21:32 Pulse Rate 73 04/25/24 21:32 Respiratory Rate 16 04/25/24 21:32 Blood Pressure 144/87 H 04/25/24 21:32 Pulse Oximetry 96 04/25/24 21:32 Oxygen Delivery Room Air 04/25/24 17:49 <Baylee Hillman PA-C - Last Filed: 04/26/24 14:49> Vital Signs Temperature 98 F 04/25/24 17:49 Pulse Rate 78 04/25/24 17:49 Respiratory Rate 17 04/25/24 17:49 Blood Pressure 172/100 H 04/25/24 17:49 Pulse Oximetry 97 04/25/24 17:49 Oxygen Delivery Room Air 04/25/24 17:49 Temperature 97.8 F 04/25/24 21:32 Pulse Rate 73 04/25/24 21:32 Respiratory Rate 16 04/25/24 21:32 Blood Pressure 144/87 H 04/25/24 21:32 Pulse Oximetry 96 04/25/24 21:32 Oxygen Delivery Room Air 04/25/24 17:49 <Willy Armstrong PA-C - Last Filed: 04/25/24 21:06> MDM - Fall MDM Narrative Medical decision making narrative: This is a 61-year-old male who presents to the ED for chief complaint of slip and fall on the ice today with subsequent left-sided rib, neck pain.. Vitals show elevated blood pressure but otherwise normal. Exam is remarkable for the above. No neurologic deficits. CT imaging of the brain and cervical spine are negative for acute findings. Chest x-ray with rib series is negative for displaced rib fracture. He does have tenderness on the left lateral ribs. Will treat as a possible fracture and given incentive spirometer and short course of [place] for pain. Patient will be discharged in stable condition. Supportive measures discussed and return precautions given. Patient is understanding and agreeable with plan for discharge with PCP follow-up. <Willy Armstrong PA-C - Last Filed: 04/25/24 21:06> Imaging Data Radiologist's impression: ITS Impressions Head CT 04/25/24 18:30 Impression: No acute intracranial hemorrhage or suspicious mass effect. Significant inflammatory sinus disease, as detailed above. Cervical Spine CT 04/25/24 18:32 Impression: Straightening and slight reversal of the normal curvature of the cervical spine, likely muscular in origin. Severe degenerative disease, without acute fracture. Ribs w/Chest X-Ray 04/25/24 18:36 IMPRESSION: No acute displaced left rib fracture. Severe degenerative disease within the left shoulder. The cardiomediastinal silhouette is unremarkable. The lungs are clear. If clinical suspicion persists, cross-sectional imaging (noncontrast enhanced CT examination of the chest) is suggested for further evaluation. <Baylee Hillman PA-C - Last Filed: 04/26/24 14:49> Critical Care Time Critical Care Time Critical Care Time: No <Baylee Hillman PA-C - Last Filed: 04/26/24 14:49> Discharge Plan Discharge Clinical Impression: Traumatic injury of rib Fall Qualifiers: Encounter type: initial encounter Qualified Code(s): W19.XXXA - Unspecified fall, initial encounter <Baylee Hillman PA-C - Last Filed: 04/26/24 14:49> Patient Disposition: Home, Self-Care <SHERRY Lerner Last Filed: 04/26/24 14:49> Condition: Stable <SHERRY Lerner Last Filed: 04/26/24 14:49> Instructions: Antibiotic Form, How to Use an Incentive Spirometer (ED) <SHERRY Lerner Last Filed: 04/26/24 14:49> Additional Instructions: Your seen in the ED today for a fall. Your imaging is reassuring. Please take [place] as needed for pain control. Use Tylenol 500 mg at baseline for pain. Use incentive spirometer to ensure adequate breathing. If you have any new or worsening symptoms please return to the ER for further evaluation. <SHERRY Lerner Last Filed: 04/26/24 14:49> Patient Language: Zimbabwean <SHERRY Lerner Last Filed: 04/26/24 14:49> Prescriptions: New hydrocodone-acetaminophen 5-325 mg tablet 1 tablet PO Q8H PRN (Reason: pain) Qty: 10 0RF No Action tamsulosin [Flomax] 0.4 mg capsule 0.8 mg PO DAILY Qty: 180 1RF gabapentin 100 mg capsule 100 mg PO QHS PRN (Reason: pain) Qty: 30 0RF zolpidem 12.5 mg tablet,ext release multiphase 12.5 mg PO ONCE Qty: 30 0RF Rx Instructions: Take hs (DME) lancing device [lancing device with lancets] Misc See Rx Instructions .Route Qty: 1 0RF Rx Instructions: Test blood glucose once daily As directed (DME) blood-glucose meter Kit See Rx Instructions .Route Qty: 1 0RF Rx Instructions: Test blood glucose once daily As directed (DME) Blood Glucose Test Strip See Rx Instructions .Route Qty: 50 3RF Rx Instructions: Test blood glucose once daily As directed (DME) lancets 31 gauge misc See Rx Instructions .Route Qty: 100 1RF Rx Instructions: Test blood glucose once daily As directed atorvastatin 40 mg tablet See Rx Instructions .ROUTE .COMPLEX Qty: 90 1RF Dose Instruction: TAKE 1 TABLET BY MOUTH EVERY DAY Rx Instructions: TAKE 1 TABLET BY MOUTH EVERY DAY clonazepam [Klonopin] 1 mg tablet 1 mg PO BID Qty: 60 0RF Rx Instructions: Take one tablet po qhs and in the afternoon celecoxib 200 mg capsule See Rx Instructions .ROUTE .COMPLEX Qty: 90 0RF Dose Instruction: TAKE 1 CAPSULE BY MOUTH DAILY Rx Instructions: TAKE 1 CAPSULE BY MOUTH DAILY terbinafine HCl 250 mg tablet See Rx Instructions .ROUTE .COMPLEX Qty: 84 0RF Dose Instruction: TAKE 1 TABLET BY MOUTH DAILY Rx Instructions: TAKE 1 TABLET BY MOUTH DAILY tadalafil 5 mg tablet See Rx Instructions .ROUTE .COMPLEX Qty: 90 0RF Dose Instruction: TAKE 1 TABLET BY MOUTH DAILY Rx Instructions: TAKE 1 TABLET BY MOUTH DAILY <Baylee Hillman PA-C - Last Filed: 04/26/24 14:49> Follow-up/Referrals: Bala Fraser MD [Primary Care Provider] - <Baylee Hillman PA-C - Last Filed: 04/26/24 14:49> Time of Disposition: 20:58 <Baylee Hillman PA-C - Last Filed: 04/26/24 14:49> 20:58 <Willy Armstrong PA-C - Last Filed: 04/25/24 21:06>
[2024-04-25 17:49] VITALS: BP 172/100; PULSE 78; RESP 17; TEMP 36.6; O2SAT 97
[2024-04-25] MEDS: HYDROcodone/acetaminophen (*CRX) 5-325 MG TABLET 1 TAB PO (17:53)
--- NOTE | 2024-04-25 21:27 | PC.NURSE ---
pt does not want to wait for incentive spirometer.
[2024-04-25 21:32] VITALS: BP 144/87; PULSE 73; RESP 16; TEMP 36.6; O2SAT 96
--- OUTSIDE RECORDS SUMMARY | 2024-05-02 03:52 | XMS_ITS | Encounter Summary ---
Author Organization [facility] Address [address] [place] [address]. [place] [address] [place] [address] Care Team Providers Care General Ii Farmworker Name Role Phone Basilia Velez MD Primary Care Provider Unavailable Encounter Details Date Type Department Care Team (Late st Contact Info) Description 05/10/2015 [facility] [address] [place], [place] [id number] Abhi Aguilar, APNP [address] [facility] [address] [place], [place] [id number] Social History Tobacco Use Types Packs/Day Years Used Date Smoking Tobacco: Never Assessed Sex and Gender Information Value Date Recorded Sex Assigned at Not on file Legal Sex Male 4:25 PM CDT Gender Identity Not on file Sexual Orientation Not on file documented as of this encounter Plan of Treatment Not on file documented as of this encounter Visit Diagnoses Diagnosis Unspecified injury of left shoulder and upper arm, initial encounter documented in this encounter Care Teams General Ii Farmworker Relationship Specialty Start Date End Date Basilia Velez MD PCP - General 05/10/15 documented as of this encounter
--- OUTSIDE RECORDS SUMMARY | 2024-05-02 03:52 | XMS_ITS | Clinical Summary ---
Author Organization [facility] Address [address] [place] [address]. [place], [place] [address] [place] [address] Care Team Providers Care Clinical Psychiatrist Name Role Phone Unavailable Primary Care Provider Unavailabl e Social History Tobacco Use Types Packs/Day Years Used Date Smoking Tobacco: Never Assessed Sex and Gender Information Value Date Recorded Sex Assigned at Not on file Legal Sex Male 4:25 PM CDT Gender Identity Not on file Sexual Orientation Not on file Plan of Treatment Health Maintenance Due Date Last Done Comments Colorectal Cancer Screening Colonoscopy (10 Years) 1955 Hepatitis C 01/18/1974 DTaP, Tdap and Td Vaccines ( 1 - Tdap) 01/18/1975 Zoster Vaccines (1 of 2) 01/18/2006 Pneumococcal Vaccine: 65+ Ye ars (1 of 1 - PCV) 01/18/2021 COVID-19 Vaccine ( - 2023-2 5 season) 2023 Influenza Adult (#1) 2024 RSV Immunization or 60+ Years (1 - 1-dose 75+ series) 01/18/2031 Meningococcal Vaccine Aged Out No amish ap eligible based on patient's age to complete this topic RSV Immunizations Under 20 Months Aged Out No longer eligible based on patient's age to complete this topic
--- OUTSIDE RECORDS SUMMARY | 2024-05-02 03:52 | XMS_ITS | Encounter Summary ---
Author Organization [facility] Address [address] [place] [address]. [place], [place] [address] [place] [address] Care Team Providers Care Hearing Aid Fitter Name Role Phone Basilia Velez MD Primary Care Provider Unavailable Encounter Details Date Type Department Care Team (Late st Contact Info) Description 02/21/2017 [place] [address] Basilia Velez MD Social History Tobacco Use Types Packs/Day Years Used Date Smoking Tobacco: Never Assessed Sex and Gender Information Value Date Recorded Sex Assigned at Not on file Legal Sex Male 4:25 PM CDT Gender Identity Not on file Sexual Orientation Not on file documented as of this encounter Plan of Treatment Not on file documented as of this encounter Visit Diagnoses Not on filedocumented in this encounter Care Teams Hearing Aid Fitter Relationship Specialty Start Date End Date Basilia Velez MD PCP - General 05/10/15 documented as of this encounter
--- OUTSIDE RECORDS SUMMARY | 2024-05-02 03:52 | XMS_ITS | Encounter Summary ---
Author Organization [facility] Address [address] [place] [address]. [place] [id number] [place] [address] Care Team Providers Care Employment Instructional Associate Name Role Phone Basilia Velez MD Primary Care Provider Unavailable Encounter Details Date Type Department Care Team (Late st Contact Info) Description 08/14/2016 Abstract [facility] [address] [place] [address] Milka Berger MD Social History Tobacco Use Types Packs/Day Years Used Date Smoking Tobacco: Never Assessed Sex and Gender Information Value Date Recorded Sex Assigned at Not on file Legal Sex Male 4:25 PM CDT Gender Identity Not on file Sexual Orientation Not on file documented as of this encounter Plan of Treatment Not on file documented as of this encounter Visit Diagnoses Diagnosis Obstructive sleep apnea Obstructive sleep apnea (adult) (pediatric) documented in this encounter Care Teams Employment Instructional Associate Relationship Specialty Start Date End Date Basilia Velez MD PCP - General 05/10/15 documented as of this encounter
--- OUTSIDE RECORDS SUMMARY | 2024-05-02 03:53 | XMS_ITS | Referral Summary ---
Author Organization [facility] Address [address] [place] [address] Care Team Providers Care Tire Fabric Impregnating Range Tender Name Role Phone Marco A Baez MD Primary Care Provider [phone] Allergies No known active allergies Medications atorvastatin (LIPITOR) 40 mg tablet take 1 tablet by oral route every day 30 5 05/04/2015 Active ibuprofen (ADVIL) 100 mg tablet take 1 Tablet by oral route every 4 - 6 hours as needed with food 0 0 05/04/2015 Active zolpidem (AMBIEN) 5 mg tablet take 2 tablet by oral route every day at bedtime 0 0 05/04/2015 Active Hospital, Clinic, or Other Facility Administered Medication Ordered Dose Route Frequency Start Date End Date Status perflutren lipid (DEFINITY) 1.5 mL in sodium chloride 0.9% 10 mL syringe 1 - 10 mL IV Once in imaging 06/02/2018 Active Active Problems Problem Noted Date Diagnosed Date Multiple-type hyperlipidemia 05/04/2015 Overview (07/25/2016): Mixed hyperlipidemia Social History Tobacco Use Types Packs/Day Years Used Date Smoking Tobacco: Former Comments:Smoking History Pac ks/day: 1 Cigars Alcohol Use Standard Drinks/Week Comments Yes 0 (1 standard drink = 0.6 oz pur e alcohol) Personal Safety Answer Date Recorded Getting School Help Needed Not on file 07/02 Sex and Gender Information Value Date Recorded Sex Assigned at Not on file Legal Sex Male 3:19 AM INFORMATION TECHNOLOGY MANAGER Gender Identity Not on file Sexual Orientation Not on file Last Filed Vital Signs Vital Sign Reading Time Taken Comments Blood Pressure 102/54 06/23/2018 10:00 AM INFORMATION TECHNOLOGY MANAGER Pulse 66 06/23/2018 10:00 AM INFORMATION TECHNOLOGY MANAGER Temperature - - Respiratory Rate 18 06/23/2018 10:00 AM INFORMATION TECHNOLOGY MANAGER Oxygen Saturation - - Inhaled Oxygen Concentration - - Weight 86.6 kg (191 lb) 06/23/2018 10:00 AM INFORMATION TECHNOLOGY MANAGER Height 188 cm (6' 2 ) 06/23/2018 10:00 AM INFORMATION TECHNOLOGY MANAGER Body Mass Index 24.52 06/23/2018 10:00 AM INFORMATION TECHNOLOGY MANAGER Plan of Treatment Not on file Insurance CHOICE [place]F PPO [place] Care Teams Tire Fabric Impregnating Range Tender Relationship Specialty Start Date End Date Marco A Baez MD [address] [place] [address] PCP - General 05/04/15
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
--- OUTSIDE RECORDS SUMMARY | 2024-05-02 03:53 | XMS_ITS | Encounter Summary ---
Author Organization [facility] Address [address] [facility] [address] [place] [address] Care Team Providers Care Tracer Powder Blender Name Role Phone Marco A Baez MD Primary Care Provider +1 [phone] Encounter Details Date Type Department Care Team (Late st Contact Info) Description 06/03/2018 Telephone [facility] [address] [phone] Samm Peters MD [address] [address] Social History Tobacco Use Types Packs/Day Years Used Date Smoking Tobacco: Former Comments:Smoking History Pac ks/day: 1 Cigars Alcohol Use Standard Drinks/Week Comments Yes 0 (1 standard drink = 0.6 oz pur e alcohol) Sex and Gender Information Value Date Recorded Sex Assigned at Not on file Legal Sex Male 3:19 AM POCKET MAKER Gender Identity Not on file Sexual Orientation Not on file documented as of this encounter Miscellaneous Notes * Telephone Encounter - Kimberly Lopez RN - 06/03/2018 3:13 PM POCKET MAKER ----- Message from Samm Peters MD sent at 06/03/2018 3:05 PM POCKET MAKER ----- Patient's overall heart function is normal. Normal valves. Follow-up as previously scheduled LM for pt; Given echo results per DK; Instructed to call with any questions. ET MAKER ET MAKER documented in this encounter Plan of Treatment Not on file documented as of this encounter Visit Diagnoses Not on filedocumented in this encounter Care Teams Tracer Powder Blender Relationship Specialty Start Date End Date Marco A Baez MD [address] [place] [address] PCP - General 05/04/15 documented as of this encounter
--- OUTSIDE RECORDS SUMMARY | 2024-05-02 03:53 | XMS_ITS | Encounter Summary ---
Author Organization [facility] Address [address] [facility] [address] [place] [address] Care Team Providers Care Youth Manager Name Role Phone Marco A Baez MD Primary Care Provider [phone] [phone] Reason for Visit * (Routine) - Closed Specialty Diagnoses / Procedures Referred By Contac t Referred To Contact Diagnoses Palpitations Dizziness Procedures Event Monitor, 30 Day Event Samm Peters MD Phone: tel: fax: [facility] Referral ID Status Reason Start Date Expiration Date Visits Re quested Visits Authorized [id number] Closed 05/10/2018 11/19/2019 1 1 Encounter Details Date Type Department Care Team (Late st Contact Info) Description 05/10/2018 1:30 PM INSTRUMENT INSPECTOR Ancillary Procedure [facility] Cardiology [address] [facility] [address] [place] [phone] Palpitations; Dizziness Social History Tobacco Use Types Packs/Day Years Used Date Smoking Tobacco: Former Comments:Smoking History Pac ks/day: 1 Cigars Alcohol Use Standard Drinks/Week Comments Yes 0 (1 standard drink = 0.6 oz pur e alcohol) Sex and Gender Information Value Date Recorded Sex Assigned at Not on file Legal Sex Male 3:19 AM INSTRUMENT INSPECTOR Gender Identity Not on file Sexual Orientation Not on file documented as of this encounter Procedure Notes * Miguel Carrasquillo MD - 05/10/2018 12:00 AM CST 14-DAY EVENT MONITOR Date of Procedure May 10, 2018 until May 23, 2018. Ordering Physician Dr. Samm Peters. Indication for procedure Palpitations. Findings This is a 14-day event monitor. The average low heart rate was 70 beats per minute. The high-average heart rate was 90 beats per minute. No pauses of 3 seconds or longer. There was 1 manually triggered recordings posted corresponding to normal sinus rhythm. No atrial fibrillation, supraventricular a rrhythmia, ventricular arrhythmias detected. Conclusion Uneventful and unremarkable 14-day event monitor without significant arrhythmias. Job ID/VF Job ID: [id number] RUMENT INSPECTOR documented in this encounter Plan of Treatment Pending Results Name Type Priority Associated Diagnoses Date /Time Event Monitor, 30 Day Event Cardiac Services Routine Palpitations Dizziness 05/10/2018 2:23 PM INSTRUMENT INSPECTOR documented as of this encounter Visit Diagnoses Diagnosis Palpitations Dizziness Dizziness and giddiness documented in this encounter Care Teams Youth Manager Relationship Specialty Start Date End Date Marco A Baez MD [address] [place] [address] PCP - General 05/04/15 documented as of this encounter
--- OUTSIDE RECORDS SUMMARY | 2024-05-02 03:53 | XMS_ITS | Encounter Summary ---
Author Organization [facility] Address [address] [facility] [address] [place] [address] Care Team Providers Care Erp Manager Name Role Phone Marco A Baez MD Primary Care Provider [phone] [phone] Reason for Visit * Diagnostic Imaging (Routine) - Closed Specialty Diagnoses / Procedures Referred By Contac t Referred To Contact Cardiology Imaging Diagnoses Palpitations Dizziness Shortness of breath Procedures Transthoracic Echo Complete W Doppler/CF Sage Milan MD Phone: tel: fax: [facility] Cardiology [address] [facility] [[email or web address] [address] [place] [phone] Phone: tel: fax: Referral ID Status Reason Start Date Expiration Date Visits Re quested Visits Authorized [id number] Closed 05/10/2018 11/19/2019 1 1 Encounter Details Date Type Department Care Team (Latest Contact Info) Description 06/02/2018 9:15 AM TOOL MACHINE SET UP OPERATOR Ancillary Procedure [facility] Cardiology [address] [facility] [address] [place] [phone] Palpitations; Dizziness; Shortness of breath Social History Tobacco Use Types Packs/Day Years Used Date Smoking Tobacco: Former Comments:Smoking History Pac ks/day: 1 Cigars Alcohol Use Standard Drinks/Week Comments Yes 0 (1 standard drink = 0.6 oz pur e alcohol) Sex and Gender Information Value Date Recorded Sex Assigned at Not on file Legal Sex Male 3:19 AM TOOL MACHINE SET UP OPERATOR Gender Identity Not on file Sexual Orientation Not on file documented as of this encounter Plan of Treatment Not on file documented as of this encounter Procedures Procedure Name Priority Date/Time Associated Diagnosis Comments TRANSTHORACIC ECHO (TTE) COMPLETE W DOPPLER/CF W CONTRAST Routine 06/02/2018 10:00 AM TOOL MACHINE SET UP OPERATOR Palpitations Dizziness Shortness of breath documented in this encounter Results * TRANSTHORACIC ECHO (TTE) COMPLETE W DOPPLER/CF W CONTRAST (06/02/2018 10:00 AM TOOL MACHINE SET UP OPERATOR) Anatomical Region Laterality Modality Ultrasound 06/02/2018 8:51 AM TOOL MACHINE SET UP OPERATOR Narrative 06/02/2018 2:05 PM TOOL MACHINE SET UP OPERATOR [facility] [address] [facility] [address], [place] [id number] [address] [facility] [address], [place] [address] P:[phone] P:[phone] Echocardiographic Report Patient Name: JIMBO GONZALEZ : 1955 Study Date: 06/02/2018 8:51:12 AM Gender: M Tech: Location: [place] Ref.Provider: CECIL Height(Cm): 188 BSA: 2.13 Weight(Kg): [...] Findings: Interpretation Site: Exam was interpreted at [facility]. Left Ventricle: Definity contrast agent used to [...] valvular structure and function. Electronically Signed By: aSge Milan MD, [facility] 2018-06-02 14:05:09 TOOL MACHINE SET UP OPERATOR Procedure Note Sage Milan MD - 06/02/2018 [facility] [address] [facility] [address] [address] [address] [facility] [address], [place] [address] P:[phone] P:[phone] Echocardiographic Report Patient Name: JIMBO GONZALEZPatient ID: [id number] : [id number] Date: 06/02/2018 8:51:12 AM Gender: MAccession #: [id number] Tech: GMLocation: [place] Ref.Provider: [place](Cm): 188 BSA: 2.13Weight(Kg): 86.64 Heart Rate: 76BP: [...] 16.00 - 28.00 ] cc/m2 MV Decel [id number] [ 150 - 200 ] msec ACS MM 1.95 cm PV Peak Vel1.49 [ 0.40 - 0.80 ] m/s E'0.12 E/E' 6 Findings: Interpretation Site: Exam was interpreted at [facility]. Left Ventricle: Definity contrast agent used to [...] function. Electronically Signed By: Sage Milan MD, [facility] 2018-06-02 14:05:09 TOOL MACHINE SET UP OPERATOR Sage Milan MD CV ECHO PROCEDURES Final Result documented in this encounter Visit Diagnoses Diagnosis Palpitations Dizziness Dizziness and giddiness Shortness of breath documented in this encounter Orders Medications Ordered That Rubén ht Not Have Been Administered Count Last Ordered Date First Ordered Date perflutren lipid (DEFINITY) 1.5 mL in sodium chloride 0.9% 10 mL syringe 1 06/02/2018 documented in this encounter Care Teams Erp Manager Relationship Specialty Start Date End Date Marco A Baez MD [address] [place] [address] PCP - General 05/04/15 documented as of this encounter
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
--- OUTSIDE RECORDS SUMMARY | 2024-05-02 03:53 | XMS_ITS | Encounter Summary ---
Author Organization [facility] Care Team Providers Care Enterprise Business Architect Name Role Phone Marco A Baez MD Primary Care Provider [phone] [phone] Encounter Details Date Type Department Care Team (Latest Contact Info) Description 06/23/2018 Travel Social History Tobacco Use Types Packs/Day Years Used Date Smoking Tobacco: Former Comments:Smoking History Pac ks/day: 1 Cigars Alcohol Use Standard Drinks/Week Comments Yes 0 (1 standard drink = 0.6 oz pur e alcohol) Sex and Gender Information Value Date Recorded Sex Assigned at Not on file Legal Sex Male 3:19 AM CARD CHECKER Gender Identity Not on file Sexual Orientation Not on file documented as of this encounter Plan of Treatment Not on file documented as of this encounter Visit Diagnoses Not on filedocumented in this encounter Care Teams Enterprise Business Architect Relationship Specialty Start Date End Date Marco A Baez MD [address] [place] [address] PCP - General 05/04/15 documented as of this encounter
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
--- OUTSIDE RECORDS SUMMARY | 2024-05-02 06:36 | XMS_ITS | Encounter Summary ---
Author Organization [facility] Address [address] [place] [address]. [place], [place] [id number] [place] [address] Care Team Providers Care Nursery Supervisor Name Role Phone Basilia Velez MD Primary Care Provider Unavailable Encounter Details Date Type Department Care Team (Late st Contact Info) Description 02/21/2017 Abstract [place] [address] Basilia Velez MD Social History Tobacco Use [...] on filedocumented in this encounter Care Teams Nursery Supervisor Relationship Specialty Start Date End Date Basilia Velez MD PCP - General 05/10/15 documented as of this encounter
--- OUTSIDE RECORDS SUMMARY | 2024-05-02 06:36 | XMS_ITS | Encounter Summary ---
Author Organization [facility] Address [address] [place] [address]. [place] [id number] [place] [address] Care Team Providers Care Refrigeration Mechanic Helper Name Role Phone Basilia Velez MD Primary Care Provider Unavailable Encounter Details Date Type Department Care Team (Late st Contact Info) Description 08/14/2016 Abstract [facility] [address] [place] [address] Milka Berger MD Social History [...] (pediatric) documented in this encounter Care Teams Refrigeration Mechanic Helper Relationship Specialty Start Date End Date Basilia Velez MD PCP - General 05/10/15 documented as of this encounter
--- OUTSIDE RECORDS SUMMARY | 2024-05-02 06:36 | XMS_ITS | Encounter Summary ---
Author Organization [facility] Address [address] [place] [address]. [place] [address] [place] [address] Care Team Providers Care Cna Pct Name Role Phone Basilia Velez MD Primary Care Provider Unavailable Encounter Details Date Type Department Care Team (Late st Contact Info) Description 05/10/2015 Abstract [facility] [address] [place], [place] [id number] Abhi Aguilar, APNP [address] [facility] [address] [place], [place] [phone] Social History Tobacco Use Types Packs/Day Years [...] encounter documented in this encounter Care Teams Cna Pct Relationship Specialty Start Date End Date Basilia Velez MD PCP - General 05/10/15 documented as of this encounter
--- OUTSIDE RECORDS SUMMARY | 2024-05-02 06:36 | XMS_ITS | Clinical Summary ---
Author Organization [facility] Address [address] [place] [address]. [place], [place] [phone] [place] [address] Care Team Providers Care Copyman Name Role Phone Unavailable Primary Care Provider [...]
--- OUTSIDE RECORDS SUMMARY | 2024-05-02 06:37 | XMS_ITS | Referral Summary ---
Author Organization [facility] Address [address] [place] [address] Care Team Providers Care Employment Office Clerk Name Role Phone Marco A Baez MD Primary Care Provider [phone] [phone] Allergies No known active allergies Medications atorvastatin [...] on file Legal Sex Male 3:19 AM TELECOMMUNICATIONS OPERATOR Gender Identity Not on file Sexual Orientation Not on file Last Filed Vital Signs Vital Sign Reading Time Taken Comments Blood Pressure 102/54 06/23/2018 10:00 AM TELECOMMUNICATIONS OPERATOR Pulse 66 06/23/2018 10:00 AM TELECOMMUNICATIONS OPERATOR Temperature - - Respiratory Rate 18 06/23/2018 10:00 AM TELECOMMUNICATIONS OPERATOR Oxygen Saturation - - Inhaled Oxygen Concentration - - Weight 86.6 kg (191 lb) 06/23/2018 10:00 AM TELECOMMUNICATIONS OPERATOR Height 188 cm (6' 2 ) 06/23/2018 10:00 AM TELECOMMUNICATIONS OPERATOR Body Mass Index 24.52 06/23/2018 10:00 AM TELECOMMUNICATIONS OPERATOR Plan of Treatment Not on file Insurance [employer] [place] Care Teams Employment Office Clerk Relationship Specialty Start Date End Date Marco A Baez MD [address] [place] [address] PCP - General 05/04/15
--- OUTSIDE RECORDS SUMMARY | 2024-05-02 06:37 | XMS_ITS | Encounter Summary ---
Author Organization [facility] Address [address] [facility] [address] [place] [address] Care Team Providers Care Textile Engraver Name Role Phone Marco A Baez MD Primary Care Provider [phone] Reason for Visit * (Routine) - Closed Specialty Diagnoses / Procedures Referred By Contac t Referred To Contact Diagnoses Palpitations Dizziness Procedures Event Monitor, 30 Day Event Samm Peters MD Phone: tel: fax: [facility] Referral ID Status Reason Start Date Expiration Date Visits Re quested Visits Authorized [id number] Closed 05/10/2018 11/19/2019 1 1 Encounter Details Date Type Department Care Team (Late st Contact Info) Description 05/10/2018 1:30 PM GANG PLANK WORKMAN Ancillary Procedure [facility] Cardiology [address] [facility] [address] [place] [phone] Palpitations; Dizziness Social History Tobacco Use Types Packs/Day Years Used Date Smoking Tobacco: Former Comments:Smoking History Pac ks/day: 1 Cigars Alcohol Use Standard Drinks/Week Comments Yes 0 (1 standard drink = 0.6 oz pur e alcohol) Sex and Gender Information Value Date Recorded Sex Assigned at Not on file Legal Sex Male 3:19 AM GANG PLANK WORKMAN Gender Identity Not on file Sexual Orientation [...] without significant arrhythmias. Job ID/VF Job ID: [id number] PLANK WORKMAN documented in this encounter Plan of Treatment Pending Results Name Type Priority Associated Diagnoses Date /Time Event Monitor, 30 Day Event Cardiac Services Routine Palpitations Dizziness 05/10/2018 2:23 PM GANG PLANK WORKMAN documented as of this encounter Visit Diagnoses Diagnosis Palpitations Dizziness Dizziness and giddiness documented in this encounter Care Teams Textile Engraver Relationship Specialty Start Date End Date Marco A Baez MD [address] [place] [address] PCP - General 05/04/15 documented as of this encounter
--- OUTSIDE RECORDS SUMMARY | 2024-05-02 06:37 | XMS_ITS | Clinical Summary ---
[facility] Organization [facility] Address [address] [place] [address] Care Team Providers Care Retort Setter Name Role Phone Marco A Baez MD Primary Care Provider +1 -[phone] Allergies No known active allergies Medications atorvastatin [...] on file Legal Sex Male 3:19 AM RESTAURANT MAINTENANCE TECHNICIAN Gender Identity Not on file Sexual Orientation Not on file Obstetrics History Last Filed Vital Signs Vital Sign Reading Time Taken Comments Blood Pressure 102/54 06/23/2018 10:00 AM RESTAURANT MAINTENANCE TECHNICIAN Pulse 66 06/23/2018 10:00 AM RESTAURANT MAINTENANCE TECHNICIAN Temperature - - Respiratory Rate 18 06/23/2018 10:00 AM RESTAURANT MAINTENANCE TECHNICIAN Oxygen Saturation - - Inhaled Oxygen Concentration - - Weight 86.6 kg (191 lb) 06/23/2018 10:00 AM RESTAURANT MAINTENANCE TECHNICIAN Height 188 cm (6' 2 ) 06/23/2018 10:00 AM RESTAURANT MAINTENANCE TECHNICIAN Body Mass Index 24.52 06/23/2018 10:00 AM RESTAURANT MAINTENANCE TECHNICIAN Plan of Treatment Not on file [facility] [place] Care Teams Retort Setter Relationship Specialty Start Date End Date Marco A Baez MD [address] [place] [address] PCP - General 05/04/15
--- OUTSIDE RECORDS SUMMARY | 2024-05-02 06:37 | XMS_ITS | Encounter Summary ---
Author Organization [facility] Address [address] [facility] [address] [place] [address] Care Team Providers Care Wire Hanger Name Role Phone Marco A Baez MD Primary Care Provider +1 [phone] Reason for Visit * Diagnostic Imaging (Routine) - Closed Specialty Diagnoses / Procedures Referred By Contac t Referred To Contact Cardiology Imaging Diagnoses Palpitations Dizziness Shortness of breath Procedures Transthoracic Echo Complete W Doppler/CF Sage Milan MD Phone: tel: fax: [facility] Cardiology [address] [facility] [address] [place] [address] Phone: tel: fax: Referral ID Status Reason Start Date Expiration Date Visits Re quested Visits Authorized [id number] Closed 05/10/2018 11/19/2019 1 1 Encounter Details Date Type Department Care Team (Latest Contact Info) Description 06/02/2018 9:15 AM SKIVING MACHINE OPERATOR Ancillary Procedure [facility] Cardiology [address] [facility] [address] [place] [phone] Palpitations; Dizziness; Shortness of breath Social History Tobacco Use Types Packs/Day Years Used Date Smoking Tobacco: Former Comments:Smoking History Pac ks/day: 1 Cigars Alcohol Use Standard Drinks/Week Comments Yes 0 (1 standard drink = 0.6 oz pur e alcohol) Sex and Gender Information Value Date Recorded Sex Assigned at Not on file Legal Sex Male 3:19 AM SKIVING MACHINE OPERATOR Gender Identity Not on file Sexual Orientation Not on file documented as of this encounter Plan of Treatment Not on file documented as of this encounter Procedures Procedure Name Priority Date/Time Associated Diagnosis Comments TRANSTHORACIC ECHO (TTE) COMPLETE W DOPPLER/CF W CONTRAST Routine 06/02/2018 10:00 AM SKIVING MACHINE OPERATOR Palpitations Dizziness Shortness of breath documented in this encounter Results * TRANSTHORACIC ECHO (TTE) COMPLETE W DOPPLER/CF W CONTRAST (06/02/2018 10:00 AM SKIVING MACHINE OPERATOR) Anatomical Region Laterality Modality Ultrasound 06/02/2018 8:51 AM SKIVING MACHINE OPERATOR Narrative 06/02/2018 2:05 PM SKIVING MACHINE OPERATOR [facility] [address] [facility] [address], [place] [id number] [address] [facility] [address], [place] [address] P:[phone] P:[phone] Echocardiographic Report Patient Name: JIMBO GONZALEZ : 1955 Study Date: 06/02/2018 8:51:12 AM Gender: M Tech: Location: [place] Ref.Provider: CECIL Height(Cm): 188 BSA: 2.13 Weight(Kg): [...] Findings: Interpretation Site: Exam was interpreted at [facility]. Left Ventricle: Definity contrast agent used to [...] Sage Milan MD, [facility] 2018-06-02 14:05:09 SKIVING MACHINE OPERATOR Procedure Note Sage Milan MD - 06/02/2018 [facility] [address] [facility] [address], [place] [address] [address] [facility] [address] [address] P:[phone] P:[phone] Echocardiographic Report Patient Name: JIMBO GONZALEZPatient ID: [id number] : [id number] Date: 06/02/2018 8:51:12 AM Gender: MAccession #: [id number] Tech: GMLocation: [place] Ref.Provider: [place](Cm): 188 BSA: 2.13Weight(Kg): 86.64 Heart [...] 16.00 - 28.00 ] cc/m2 MV Decel [id number] [ 150 - 200 ] msec ACS MM 1.95 cm PV Peak Vel1.49 [ 0.40 - 0.80 ] m/s E'0.12 E/E' 6 Findings: Interpretation Site: Exam was interpreted at [facility]. Left Ventricle: Definity contrast agent used to [...] Sage Milan MD, [facility] 2018-06-02 14:05:09 SKIVING MACHINE OPERATOR Sage Milan MD CV ECHO PROCEDURES [...] 06/02/2018 documented in this encounter Care Teams Wire Hanger Relationship Specialty Start Date End Date Marco A Baez MD [address] [place] [address] PCP - General 05/04/15 documented as of this encounter
--- OUTSIDE RECORDS SUMMARY | 2024-05-02 06:37 | XMS_ITS | Encounter Summary ---
Author Organization [facility] Address [address] [facility] [address] [place] [address] Care Team Providers Care Principal Java Developer Name Role Phone Marco A Baez MD Primary Care Provider +1 [phone] Encounter Details Date Type Department Care Team (Late st Contact Info) Description 06/03/2018 Telephone [facility] [address] [phone] Samm Peters MD [address] [address] Social History Tobacco Use Types Packs/Day Years Used Date Smoking Tobacco: Former Comments:Smoking History Pac ks/day: 1 Cigars Alcohol Use Standard Drinks/Week Comments Yes 0 (1 standard drink = 0.6 oz pur e alcohol) Sex and Gender Information Value Date Recorded Sex Assigned at Not on file Legal Sex Male 3:19 AM ROLL EXAMINER Gender Identity Not on file Sexual Orientation Not on file documented as of this encounter Miscellaneous Notes * Telephone Encounter - Kimberly Lopez RN - 06/03/2018 3:13 PM ROLL EXAMINER ----- Message from Samm Peters MD sent at 06/03/2018 3:05 PM ROLL EXAMINER ----- Patient's overall heart function is normal. Normal valves. Follow-up as previously scheduled LM for pt; Given echo results per DK; Instructed to call with any questions. EXAMINER EXAMINER documented in this encounter Plan of Treatment Not on file documented as of this encounter Visit Diagnoses Not on filedocumented in this encounter Care Teams Principal Java Developer Relationship Specialty Start Date End Date Marco A Baez MD [address] [place] [address] PCP - General 05/04/15 documented as of this encounter
--- OUTSIDE RECORDS SUMMARY | 2024-05-02 06:37 | XMS_ITS | Encounter Summary ---
Author Organization [facility] Address [address] [facility] [address] [place] [address] Care Team Providers Care Sleep Technologist Name Role Phone Marco A Baez MD Primary Care Provider +1 [phone] Reason for Visit * Reason Comments Follow-up Encounter Details Date Type Department Care Team (Late st Contact Info) Description 06/23/2018 9:45 AM PORTABLE IRRIGATION OPERATOR Office Visit [facility] [address] [facility] [address] [place] [phone] Samm Peters MD [address] [place] [address] Anxiety (Primary Dx); ROSALIE (obstructive sleep apnea); Insomnia, unspecified type Social History Tobacco Use Types Packs/Day Years Used Date Smoking Tobacco: Former Comments:Smoking History Pac ks/day: 1 Cigars Alcohol Use Standard Drinks/Week Comments Yes 0 (1 standard drink = 0.6 oz pur e alcohol) Sex and Gender Information Value Date Recorded Sex Assigned at Not on file Legal Sex Male 3:19 AM PORTABLE IRRIGATION OPERATOR Gender Identity Not on file Sexual Orientation Not on file documented as of this encounter Last Filed Vital Signs Vital Sign Reading Time Taken Comments Blood Pressure 102/54 06/23/2018 10:00 AM PORTABLE IRRIGATION OPERATOR Pulse 66 06/23/2018 10:00 AM PORTABLE IRRIGATION OPERATOR Temperature - - Respiratory Rate 18 06/23/2018 10:00 AM PORTABLE IRRIGATION OPERATOR Oxygen Saturation - - Inhaled Oxygen Concentration - - Weight 86.6 kg (191 lb) 06/23/2018 10:00 AM PORTABLE IRRIGATION OPERATOR Height 188 cm (6' 2 ) 06/23/2018 10:00 AM PORTABLE IRRIGATION OPERATOR Body Mass Index 24.52 06/23/2018 10:00 AM PORTABLE IRRIGATION OPERATOR documented in this encounter Progress Notes * [...] or sooner if needed Samm Peters MD ABLE IRRIGATION OPERATOR documented in this encounter Plan of Treatment Not on file documented as of this encounter Visit Diagnoses Diagnosis Anxiety- Primary Anxiety state, unspecified ROSALIE (obstructive sleep apnea) Obstructive sleep apnea (adult) (pediatric) Insomnia, unspecified type documented in this encounter Care Teams Sleep Technologist Relationship Specialty Start Date End Date Marco A Baez MD [address] [place] [address] PCP - General 05/04/15 documented as of this encounter
--- OUTSIDE RECORDS SUMMARY | 2024-05-02 06:37 | XMS_ITS | Encounter Summary ---
Author Organization [facility] Address [address] [facility] [address] [place] [address] Care Team Providers Care Icer Machine Operator Name Role Phone Marco A Baez MD Primary Care Provider [phone] [phone] Reason for Referral * Diagnostic Imaging (Routine) - Closed Specialty Diagnoses / Procedures Referred By Contac t Referred To Contact Cardiology Imaging Diagnoses Palpitations Dizziness Shortness of breath Procedures Transthoracic Echo Complete W Doppler/CF Sage Milan MD Phone: tel: fax: [facility] Cardiology [address] [place] [address] Phone: tel: fax: Referral ID Status Reason Start Date Expiration Date Visits Re quested Visits Authorized [id number] Closed 05/10/2018 11/19/2019 1 1 T SPINNER * (Routine) - Closed Specialty Diagnoses / Procedures Referred By Contac t Referred To Contact Diagnoses Palpitations Dizziness Procedures Event Monitor, 30 Day Event Sage Milan MD Phone: tel: fax: [facility] Referral ID Status Reason Start Date Expiration Date Visits Re quested Visits Authorized [id number] Closed 05/10/2018 11/19/2019 1 1 T SPINNER Reason for Visit * Reason Comments New Patient Encounter Details Date Type Department Care Team (Late st Contact Info) Description 05/10/2018 1:00 PM RIVET SPINNER Office Visit [facility] [address] [facility] [address], [place] [address] Sage Milan MD [address] [place] [address] [address] [place] [address] Lipid screening (Primary Dx); Palpitations; [...] on file Legal Sex Male 3:19 AM RIVET SPINNER Gender Identity Not on file Sexual Orientation Not on file documented as of this encounter Last Filed Vital Signs Vital Sign Reading Time Taken Comments Blood Pressure 112/70 05/10/2018 12:51 PM RIVET SPINNER Pulse 75 05/10/2018 12:51 PM RIVET SPINNER Temperature - - Respiratory Rate 18 05/10/2018 12:51 PM RIVET SPINNER Oxygen Saturation - - Inhaled Oxygen Concentration - - Weight 86.6 kg (191 lb) 05/10/2018 12:51 PM RIVET SPINNER Height 188 cm (6' 2 ) 05/10/2018 12:51 PM RIVET SPINNER Body Mass Index 24.52 05/10/2018 12:51 PM RIVET SPINNER documented in this encounter Progress Notes * [...] or sooner if needed Sage Milan MD T SPINNER documented in this encounter Miscellaneous Notes * Addendum Note - Beatrice Vargas MA - 05/10/2018 1:00 PM CSTAddended by: BEATRICE VARGAS on: 05/10/2018 04:02 PM Modules accepted: Orders T SPINNER documented in this encounter Plan of Treatment Pending Results Name Type Priority Associated Diagnoses Date /Time Event Monitor, 30 Day Event Cardiac Services Routine Palpitations Dizziness 05/10/2018 2:23 PM RIVET SPINNER Scheduled Orders Name Type Priority Associated Diagnoses Orde r Schedule Event Monitor, 30 Day Event Cardiac Services Routine Palpitations Dizziness Expected: 05/10/2018, Expires: 05/10/2019 documented as of this encounter Procedures Procedure Name Priority Date/Time Associated Diagnosis Comments POCT LIPID PANEL Routine 05/10/2018 12:5 7 PM RIVET SPINNER Lipid screening ECG 12-LEAD Routine 05/10/2018 Palpitations Shortness of breath documented in this encounter Results * TRANSTHORACIC ECHO (TTE) COMPLETE W DOPPLER/CF W CONTRAST (06/02/2018 10:00 AM RIVET SPINNER) Anatomical Region Laterality Modality Ultrasound 06/02/2018 8:51 AM RIVET SPINNER Narrative 06/02/2018 2:05 PM RIVET SPINNER [facility] [address] [facility] [address], [place] [address] [address] [facility] [address] [address] P:[phone] P:[phone] Echocardiographic Report Patient Name: JIMBO GONZALEZ : 1955 Study Date: 06/02/2018 8:51:12 AM Gender: M Tech: GM Location: [place] Ref.Provider: CECIL Height(Cm): 188 BSA: 2.13 Weight(Kg): [...] Findings: Interpretation Site: Exam was interpreted at [facility]. Left Ventricle: Definity contrast agent used to [...] function. Electronically Signed By: Sage Milan MD, [facility] 2018-06-02 14:05:09 RIVET SPINNER Procedure Note Sage Milan MD - 06/02/2018 [facility] [address] [facility] [address], [place] [address] [address] [facility] [address], [place] [address] P:[phone] P:[phone] Echocardiographic Report Patient Name: JIMBO GONZALEZPatient ID: [id number] : [id number] Date: 06/02/2018 8:51:12 AM Gender: MAccession #: [id number] Tech: GMLocation: [place] Ref.Provider: DECLANVALGILeishakilat(Cm): 188 BSA: 2.13Weight(Kg): 86.64 Heart [...] 16.00 - 28.00 ] cc/m2 MV Decel [id number] [ 150 - 200 ] msec ACS [...] function. Electronically Signed By: Sage Milan MD, [facility] 2018-06-02 14:05:09 RIVET SPINNER Result Capri Milan MD CV ECHO PROCEDURES Final Result * (ABNORMAL) POCT lipid panel (05/10/2018 12:57 PM RIVET SPINNER) Cholesterol, POC 168 mg/dL HDL, POC 47 mg/dL Triglycerides, POC 185 mg/dL LDL Cholesterol POC 84 mg/dL Chol/HDL Ratio, POC 3.6 Non-HDL Cholesterol, POC 121 mg/dL Cholesterol Total, POC 168 mg/dL Blood specimen (specimen) 05/10/2018 12:57 PM RIVET SPINNER Result Capri Milan MD POINT OF CARE [...] breath documented in this encounter Care Teams Icer Machine Operator Relationship Specialty Start Date End Date Marco A Baez MD [address] [place] [address] PCP - General 05/04/15 documented as of this encounter
--- OUTSIDE RECORDS SUMMARY | 2024-05-02 06:37 | XMS_ITS | Encounter Summary ---
Author Organization [facility] Care Team Providers Care Machine Tank Operator Name Role Phone Marco A Baez MD Primary Care Provider [phone] [phone] Encounter Details Date Type Department Care Team [...] on file Legal Sex Male 3:19 AM STEEL BURNER Gender Identity Not on file Sexual Orientation Not on file documented as of this encounter Plan of Treatment Not on file documented as of this encounter Visit Diagnoses Not on filedocumented in this encounter Care Teams Machine Tank Operator Relationship Specialty Start Date End Date Marco A Baez MD [address] [place] [address] PCP - General 05/04/15 documented as of this encounter
== END 2024-04-25 21:31 | disposition home or self-care (01) ==
PROVIDERS: Emergency Provider Physician Assistant; PCP Family Medicine
DX: S29.9XXA Unspecified injury of thorax, initial encounter (principal); E78.5 Hyperlipidemia, unspecified; E55.9 Vitamin D deficiency, unspecified; G47.33 Obstructive sleep apnea (adult) (pediatric); F17.290 Nicotine dependence, other tobacco product, uncomplicated; Z86.16 Personal history of COVID-19; Z89.612 Acquired absence of left leg above knee; Z90.81 Acquired absence of spleen; M19.012 Primary osteoarthritis, left shoulder; M50.30 Other cervical disc degeneration, unspecified cervical region; J32.9 Chronic sinusitis, unspecified; W00.0XXA Fall on same level due to ice and snow, initial encounter
CPT/HCPCS: 70450; 71046; 71100; 72125; 99284; A9270

== ENCOUNTER 2024-06-20 10:46 | Outpatient (CLI) | payer OTHER, SELFPAY ==
[2024-06-20 11:20] LABS: Add Urine Microscopic? NO; Appearance Urine Clear (Clear); Bilirubin Urine Negative (Negative); Blood Urine Negative (Negative); Color Urine Yellow (Yellow); Glucose Urine UA Negative (Negative); Ketones Urine Trace mg/dL (Negative); Leukocyte Esterase Ur Negative LEU/UL (Negative); Nitrate Urine Negative (Negative); Protein Urine Negative (Negative); Specific Grav Ur 1.019 (1.001-1.035); Urobilinogen Urine 0.2 mg/dL (<2.0)
[2024-06-20 11:23] LABS: Hematocrit 46.1 % (42.0-52.0); Hemoglobin 15.5 g/dL (14.0-18.0); Mean Corpuscular HGB Conc 33.6 g/dl (32-36); Mean Corpuscular Volume 92.2 fl (80-100); Mean Platelet Volume 8.8 fl (7.4-10.4); Platelet Count Result 362 k/mm3 (150-375); Red Cell Distribution Width 15.9 % (11.5-14.5); White Blood Count 6.4 K/mm3 (4.5-10.0)
[2024-06-20 11:38] LABS: Alanine Aminotransferase 29 U/L (6-50); Albumin Level 4.2 g/dL (3.5-5.1); Alkaline Phosphatase 67 U/L (38-126); Anion Gap 10 mmol/L (4-12); Aspartate Amino Transferase 34 U/L (17-59); Bilirubin,Total 0.8 mg/dL (0.2-1.3); Blood Urea Nitrogen 13 mg/dL (9-20); Carbon Dioxide 25 mmol/L (22-30); Chloride 103 mmol/L (98-107); Estimated Glomerular Filt Rate > 60; Glucose 92 mg/dL (65-110); Potassium 4.4 mmol/L (3.4-5.0); Sodium 138 mmol/L (137-145)
[2024-06-20 11:58] LABS: Influenza A QL RT-PCR Negative (Negative); Influenza B QL RT-PCR Negative (Negative); RSV RNA, RT-PCR Negative (Negative); SARS-CoV-2 RNA PCR Negative (Negative)
[2024-06-20 17:03] LABS: Hemoglobin A1C 5.5 % (<5.7)
== END 2024-06-20 10:47 | disposition home or self-care (01) ==
PROVIDERS: PCP Family Medicine; Visit Provider Family Medicine
DX: J06.9 Acute upper respiratory infection, unspecified (principal); R35.0 Frequency of micturition; E78.5 Hyperlipidemia, unspecified; R73.9 Hyperglycemia, unspecified; G47.33 Obstructive sleep apnea (adult) (pediatric); G47.00 Insomnia, unspecified; Z79.899 Other long term (current) drug therapy
CPT/HCPCS: 36415; 80053; 81003; 83036; 85027; 87637

== ENCOUNTER 2024-10-10 09:45 | Outpatient (RCR) | payer OTHER, SELFPAY ==
[2024-08-25 09:30] VITALS: BP_SYST 110
--- NOTE | 2024-09-01 17:47 | PTOPEVAL1 ---
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 Has not done any MRI testing at this time. Pain greatly impacts and results to significant limitations to mobility and strength to L shoulder . Noted difficulty with functional mobility and overhead tasks. Pt may benefit from skilled PT intervention for pain management, flexibility and strength training, postural awareness and HEPs to improve function of L shoulder. Plan of Care Interventions Electrical Stimulation,Hot Pack/Cold Pack,Manual Therapy,Neuro Re-education,Patient/Caregiver Education,Therapeutic Activities,Therapeutic Exercise,Ultrasound Other Interventions IASTM, Taping PT Services Indicated Yes Treatment Frequency and 2x/wk x 12 visits Duration These treatments will address the objective and functional deficits as defined above. The patient will be advanced safely and appropriately in order for the patient to progress towards his/her prior level of function. Additional exercises will be introduced and as well as a comprehensive home exercise program upon discharge, if needed, ?to ensure carryover of functional gains achieved in the clinic. This treatment plan has been reviewed and agreement upon by the patient.
--- NOTE | 2024-09-01 17:47 | OPREHPOC ---
Outpatient Therapy Plan of Care This is a Multidisciplinary Plan of Care that may contain components documented by all disciplines (PT, OT, and ST.) PT Problem 1 PT Problem #1 Knowledge Deficit PT Goal 1 Goal / Goal Update Pt will perform shoulder stabilization and mobility HEPs indep Target Visit 12 PT Problem 2 PT Problem #2 Pain PT Goal 1 Goal / Goal Update Pt will report 2-3/10 pain at worst or with movement. Target Visit 12 PT Problem 3 PT Problem #3 Impaired Range of Motion PT Goal 1 Goal / Goal Update Pt will demo WNL ROM of LUE to improve performing functional tasks, ADLs and IADLs safely. Target Visit 12 PT Problem 4 PT Problem #4 Impaired Strength PT Goal 1 Goal / Goal Update Pt will demo 4/5 or more gross strength for BUE to improve lifting, carrying and pushing tasks without increased discomfort.
--- NOTE | 2024-09-29 08:29 | PCPTNOTE ---
Patient cancelled appt in [facility]. 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
--- NOTE | 2024-10-03 12:41 | PCPTNOTE ---
Patient cancelled appt in [facility] without a reason given.
--- NOTE | 2024-10-10 10:07 | PTOPDC ---
Assessment and note entered by Annetta Montalvo, PT Evaluation Information Assessment Status Discharge Diagnosis M25.519 ICD-10 Condition Codes (PT) Pain in left shoulder M25.512 Subjective Information Pt reports pain has not changed since started therapy. Is also sore when uses crutches. Therapy has helped, ice has seemed to help as well . If he is active during the day is ok unless is under strain and certain positions. Reported Pain Level Pain Score 6: Self Report Assessment PT Clinical Summary Pt presents for therapy with left shoulder pain. Unfortunately he has not had the improvement hoped for, continues to demonstrate less than normative values for ROM, strength, and also has (+) testing for RTC involvement. Pt has not met any of his therapy goals and has been educated on PCP communication and hopeful referral to specialist and/or further imaging of the shoulder. Pt is thus being discharged for max benefit met at this time . Plan of Care PT Services Indicated No
== END 2024-10-10 10:59 | disposition home or self-care (01) ==
LOC: ANHHIPT 09:45
PROVIDERS: PCP Family Medicine; Visit Provider Family Medicine
DX: M25.519 Pain in unspecified shoulder (principal)
CPT/HCPCS: 97014; 97035; 97110; 97140; 97161; 97530; 97750; G0283

== ENCOUNTER 2024-11-05 12:34 | Emergency (ER) | payer OTHER, SELFPAY ==
--- NOTE | ~2024-11-05 | XR_ITS ---
XR knee RT min 4V 11/05/2024 12:57 Indication: Right knee injury with pain Procedure: 4 views right knee Comparison: No prior studies for comparison. Findings: There is severe tricompartment osteoarthritis. No fracture, subluxation or dislocation. No significant joint effusion. No foreign bodies. Impression: 1: Severe tricompartment osteoarthritis. Reviewed, dictated and finalized at location A. Impression: 1: Severe tricompartment osteoarthritis.
--- OUTSIDE RECORDS SUMMARY | 2024-11-05 12:36 | XMS_ITS | Clinical Summary ---
Author Organization [facility] Address [facility] [place] [address] Care Team Providers Care Card Maker Name Role Phone Unavailable Primary Care Provider [...] Td Vaccines ( 1 - Tdap) 01/18/1975 Pneumococcal Vaccine: 50+ Ye ars (1 of 1 - PCV) 01/18/2006 Zoster Vaccines (1 of 2) 01/18/2006 COVID-19 Vaccine ( - 2023-2 5 season) 2023 RSV Immunization or 60+ Years (1 - 1-dose 75+ series) 01/18/2031 Meningococcal B Vaccine Aged Out No l onger eligible based on patient's age to complete this topic Meningococcal Vaccine Aged Out No amish ap eligible based on patient's age to complete this topic RSV Immunizations Under 20 Months Aged Out No longer eligible based on patient's age to complete this topic
--- OUTSIDE RECORDS SUMMARY | 2024-11-05 12:36 | XMS_ITS | Encounter Summary ---
Author Organization [facility] Address [address] [place] [address] Care Team Providers Care Agricultural Extension Officer Name Role Phone Basilia Velez MD Primary Care Provider Unavailable Encounter Details Date Type Department Care Team (Late st Contact Info) Description 02/21/2017 [place] [address] Basilia Velez MD Social History Tobacco Use [...] on filedocumented in this encounter Care Teams Agricultural Extension Officer Relationship Specialty Start Date End Date Basilia Velez MD PCP - General 05/10/15 documented as of this encounter
--- OUTSIDE RECORDS SUMMARY | 2024-11-05 12:36 | XMS_ITS | Clinical Summary ---
Author Organization [facility] Address [address] [place] [address] Care Team Providers Care Coil Binder Name Role Phone Marco A Baez MD Primary Care Provider +1 [phone] Allergies No known active allergies Medications atorvastatin [...] on file Legal Sex Male 3:19 AM INDUSTRIAL YARD BRAKE COUPLER Gender Identity Not on file Sexual Orientation Not on file Obstetrics History Last Filed Vital Signs Vital Sign Reading Time Taken Comments Blood Pressure 102/54 06/23/2018 10:00 AM INDUSTRIAL YARD BRAKE COUPLER Pulse 66 06/23/2018 10:00 AM INDUSTRIAL YARD BRAKE COUPLER Temperature - - Respiratory Rate 18 06/23/2018 10:00 AM INDUSTRIAL YARD BRAKE COUPLER Oxygen Saturation - - Inhaled Oxygen Concentration - - Weight 86.6 kg (191 lb) 06/23/2018 10:00 AM INDUSTRIAL YARD BRAKE COUPLER Height 188 cm (6' 2) 06/23/2018 10:00 AM INDUSTRIAL YARD BRAKE COUPLER Body Mass Index 24.52 06/23/2018 10:00 AM INDUSTRIAL YARD BRAKE COUPLER Plan of Treatment Not on file [facility] [place] Care Teams Coil Binder Relationship Specialty Start Date End Date Marco A Baez MD [address] [place] [address] PCP - General 05/04/15
--- OUTSIDE RECORDS SUMMARY | 2024-11-05 12:36 | XMS_ITS | Referral Summary ---
Author Organization [facility] Address [address] [place] [address] Care Team Providers Care Ribbon Weaver Name Role Phone Marco A Baez MD Primary Care Provider +1 [phone] Allergies No known active allergies Medications atorvastatin [...] on file Legal Sex Male 3:19 AM ZOO KEEPER Gender Identity Not on file Sexual Orientation Not on file Last Filed Vital Signs Vital Sign Reading Time Taken Comments Blood Pressure 102/54 06/23/2018 10:00 AM ZOO KEEPER Pulse 66 06/23/2018 10:00 AM ZOO KEEPER Temperature - - Respiratory Rate 18 06/23/2018 10:00 AM ZOO KEEPER Oxygen Saturation - - Inhaled Oxygen Concentration - - Weight 86.6 kg (191 lb) 06/23/2018 10:00 AM ZOO KEEPER Height 188 cm (6' 2) 06/23/2018 10:00 AM ZOO KEEPER Body Mass Index 24.52 06/23/2018 10:00 AM ZOO KEEPER Plan of Treatment Not on file Insurance [employer] [place] Care Teams Ribbon Weaver Relationship Specialty Start Date End Date Marco A Baez MD [address] [place] [address] PCP - General 05/04/15
[2024-11-05 12:42] VITALS: BP 139/68; PULSE 84; RESP 16; TEMP 36.6; O2SAT 97
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
--- OUTSIDE RECORDS SUMMARY | 2024-11-05 14:15 | XMS_ITS | Encounter Summary ---
Author Organization [facility] Address [address] [place] [id number] Care Team Providers Care Taxicab Starter Name Role Phone Basilia Velez MD Primary Care Provider Unavailable Encounter Details Date Type Department Care Team (Late st Contact Info) Description 02/21/2017 [place] [address] Basilia Velez MD Social History Tobacco Use [...] on filedocumented in this encounter Care Teams Taxicab Starter Relationship Specialty Start Date End Date Basilia Velez MD PCP - General 05/10/15 documented as of this encounter
--- OUTSIDE RECORDS SUMMARY | 2024-11-05 14:15 | XMS_ITS | Clinical Summary ---
Author Organization [facility] Address [address] [place] [address] Care Team Providers Care Mold Filling Operator Name Role Phone Marco A Baez MD Primary Care Provider [phone] Allergies No known active allergies Medications atorvastatin [...] on file Legal Sex Male 3:19 AM WET CROWN BLOCKING OPERATOR Gender Identity Not on file Sexual Orientation Not on file Obstetrics History Last Filed Vital Signs Vital Sign Reading Time Taken Comments Blood Pressure 102/54 06/23/2018 10:00 AM WET CROWN BLOCKING OPERATOR Pulse 66 06/23/2018 10:00 AM WET CROWN BLOCKING OPERATOR Temperature - - Respiratory Rate 18 06/23/2018 10:00 AM WET CROWN BLOCKING OPERATOR Oxygen Saturation - - Inhaled Oxygen Concentration - - Weight 86.6 kg (191 lb) 06/23/2018 10:00 AM WET CROWN BLOCKING OPERATOR Height 188 cm (6' 2) 06/23/2018 10:00 AM WET CROWN BLOCKING OPERATOR Body Mass Index 24.52 06/23/2018 10:00 AM WET CROWN BLOCKING OPERATOR Plan of Treatment Not on file [facility] [place] Care Teams Mold Filling Operator Relationship Specialty Start Date End Date Marco A Baez MD [address] [place] [id number] PCP - General 05/04/15
--- OUTSIDE RECORDS SUMMARY | 2024-11-05 14:15 | XMS_ITS | Clinical Summary ---
Author Organization [facility] Address [facility] [place] [address] Care Team Providers Care Furnace Filler Name Role Phone Unavailable Primary Care Provider [...]
--- OUTSIDE RECORDS SUMMARY | 2024-11-05 14:15 | XMS_ITS | Referral Summary ---
Author Organization [facility] Address [address] [place] [address] Care Team Providers Care Taxi Cab Driver Name Role Phone Marco A Baez MD Primary Care Provider [phone] Allergies No known active allergies Medications atorvastatin [...] on file Legal Sex Male 3:19 AM RN RELIEF CHARGE Gender Identity Not on file Sexual Orientation Not on file Last Filed Vital Signs Vital Sign Reading Time Taken Comments Blood Pressure 102/54 06/23/2018 10:00 AM RN RELIEF CHARGE Pulse 66 06/23/2018 10:00 AM RN RELIEF CHARGE Temperature - - Respiratory Rate 18 06/23/2018 10:00 AM RN RELIEF CHARGE Oxygen Saturation - - Inhaled Oxygen Concentration - - Weight 86.6 kg (191 lb) 06/23/2018 10:00 AM RN RELIEF CHARGE Height 188 cm (6' 2) 06/23/2018 10:00 AM RN RELIEF CHARGE Body Mass Index 24.52 06/23/2018 10:00 AM RN RELIEF CHARGE Plan of Treatment Not on file Insurance [employer] [place] [place] Care Teams Taxi Cab Driver Relationship Specialty Start Date End Date Marco A Baez MD [address] [place] [address] PCP - General 05/04/15
[2024-11-05] MEDS: ACETAMINOPHEN 500 MG TABLET 1000 MG PO (14:29)
== END 2024-11-05 14:48 | disposition home or self-care (01) ==
PROVIDERS: Emergency Provider Emergency Medicine; PCP Family Medicine
DX: M25.561 Pain in right knee (principal); E78.5 Hyperlipidemia, unspecified; E55.9 Vitamin D deficiency, unspecified; G47.33 Obstructive sleep apnea (adult) (pediatric); F41.9 Anxiety disorder, unspecified; F17.290 Nicotine dependence, other tobacco product, uncomplicated; Z86.16 Personal history of COVID-19; Z89.612 Acquired absence of left leg above knee; Z90.81 Acquired absence of spleen; Z79.899 Other long term (current) drug therapy
CPT/HCPCS: 73564; 99283; A9270